=== PATIENT | male | born 1965 | race African-American/Black ===

== ENCOUNTER 2017-10-15 18:44 | Emergency (ER) | payer SELFPAY ==
--- NOTE | 2017-10-15 18:57 | ER Document Report ---
ED General - General Stated Complaint: FOOT PAIN Time Seen by Provider: 10/15/17 18:51 Notes: 52-year-old male presents with itchy rash with oozing from his right dorsal foot , with pain onset 3 days ago. History of the same on the left foot. He has been seen before for this. He does not have diabetes. He states that his foot and ligament a little swollen but they get better when he elevates them. Denies fever chills. - Related Data Allergies/Adverse Reactions: Penicillins Allergy (Verified 03/01/13 03:58) Past Medical History - Social History Smoking Status: Never Smoker Family History: Reviewed & Not Pertinent - Past Medical History Cardiac Medical History: Reports: Hx Hypertension Endocrine Medical History: Reports: Hx Diabetes Mellitus Type 2 - borderline Skin Medical History: Reports Hx MRSA - Immunizations Immunizations up to date: Yes Hx Diphtheria, Pertussis, Tetanus Vaccination: Yes Hx Pneumococcal Vaccination: 01/28/13 Review of Systems - Review of Systems Notes: REVIEW OF SYSTEMS GEN: Denies fever, chills, weight loss ENT: Denies sore throat, nasal discharge, ear pain EYES: Denies blurry vision, eye pain, discharge CV: Denies chest pain, palpitations, edema RESP: Denies cough, shortness of breath, wheezing GI: Denies abdominal pain, nausea, vomiting, diarrhea MSK: Denies joint pain/swelling, edema, SKIN: Rash as above LYMPH: Denies swollen glands/lymph nodes NEURO: Denies headache, focal weakness or numbness, dizziness PSYCH: Denies depression, suicidal or homicidal ideation PHYSICAL EXAMINATION General: No acute distress, well-nourished Head: Atraumatic, normocephalic ENT: Mouth normal, oropharynx moist, no exudates or tonsillar enlargement Eyes: Conjunctiva normal, pupils equal, lids normal Neck: No JVD, supple, no guarding CVS: Normal rate, regular rhythm, no murmurs Resp: No resp distress, equal and normal breath sounds bilaterally GI: Nondistended, soft, no tenderness to palpation, no rebound or guarding Ext: No deformities, right greater than left foot edema. The top dorsal area of the right foot is a confluent area of exudative dermatitis with some desquamation. No bullae. Minimal tenderness. Hyperpigmentation scarring on the left foot. Good pulses bilaterally. Back: No CVA or midline TTP Skin: No rash, warm Lymphatic: No lymphadeopathy noted Neuro: Awake, alert. Face symmetric. GCS 15. Physical Exam - Vital signs Vitals: Resp Pulse Ox 13 98 10/15/17 18:54 10/15/17 18:54 Course - Re-evaluation Re-evalutation: 10/15/17 18:56 Severe exudative dermatitis of the foot. Vital signs stable. Possible overlying cellulitis. Doubt sepsis or osteopenia Nursing initiated sepsis care site which will be done. We will also x-ray. 10/15/17 20:10 Labs normal except mild leukocytosis. Lactic normal. X-ray negative. Patient continues to be well-appearing. I think this is truly a dermatitis not cellulitis but I will cover him for cellulitis given his generally poor hygiene and open skin. We will also do topical steroids. Discharge home in stable condition with instructions to elevate and careful return precautions. I have discussed with the patient there likely diagnosis, aftercare plan, follow -up plans and my usual and customary return precautions. They verbalized understanding of this. - Vital Signs Vital signs: Temp Pulse Resp BP Pulse Ox 98.1 F 14 141/91 H 100 10/15/17 18:58 10/15/17 19:31 10/15/17 19:31 10/15/17 19:31 - Laboratory Result Diagrams: 10/15/17 18:53 10/15/17 18:53 Laboratory results interpreted by me: 10/15/17 18:53 WBC 13.2 H Absolute Neutrophils 8.3 H Absolute Monocytes 1.5 H Discharge - Discharge Clinical Impression: Dermatitis Cellulitis Qualifiers: Site of cellulitis: extremity Site of cellulitis of extremity: lower extremity Laterality: right Qualified Code(s): L03.115 - Cellulitis of right lower limb Condition: Good Disposition: HOME, SELF-CARE Instructions: Cellulitis ([facility]) Prescriptions: Clindamycin HCl 150 mg PO TID #20 capsule
[2017-10-15 19:09] LABS: ABSOLUTE BASOPHILS # (AUTO) 0.1 10^3/uL (0.0-0.2); ABSOLUTE EOSINOPHILS # (AUTO) 0.3 10^3/uL (0.0-0.6); ABSOLUTE LYMPHOCYTES (AUTO) 3.1 10^3/uL (0.5-4.7); ABSOLUTE MONOCYTES (AUTO) 1.5 10^3/uL (0.1-1.4); ABSOLUTE NEUT (AUTO) 8.3 10^3/uL (1.7-8.2); BASOPHILS % (AUTO) 0.4 % (0-2); EOSINOPHILS % (AUTO) 2.6 % (0-6); HEMATOCRIT 41.1 % (37.9-51.0); HEMOGLOBIN 13.6 g/dL (13.5-17.0); LYMPHOCYTES % (AUTO) 23.1 % (13-45); MEAN CORPUSCULAR HEMOGLOBIN 30.4 pg (27.0-33.4); MEAN CORPUSCULAR HGB CONC 33.1 g/dL (32.0-36.0); MEAN CORPUSCULAR VOLUME 92 fl (80-97); MONOCYTES % (AUTO) 11.3 % (3-13); PLATELET COUNT 245 10^3/uL (150-450); RED BLOOD COUNT 4.47 10^6/uL (4.35-5.55); RED CELL DISTRIBUTION WIDTH 12.7 % (11.5-14.0); SEGMENTED NEUTROPHILS % (AUTO) 62.6 % (42-78); TOTAL CELLS COUNTED % (AUTO) 100 %; WHITE BLOOD COUNT 13.2 10^3/uL (4.0-10.5)
[2017-10-15 19:10] LABS: VENOUS BLOOD BASE EXCESS 2.9 mmol/L; VENOUS BLOOD HCO3 29.1 mmol/L (20-32); VENOUS BLOOD PCO2 50.5 mmHg (35-63); VENOUS BLOOD PH 7.38 (7.30-7.42)
--- NOTE | 2017-10-15 19:14 | RADIOLOGY REPORT (SQ) ---
EXAM DESCRIPTION: FOOT RIGHT COMPLETE COMPLETED DATE/TIME: 10/15/2017 7:06 pm REASON FOR STUDY: OSTEO COMPARISON: None. NUMBER OF VIEWS: Three views. TECHNIQUE: AP, lateral and oblique without weight bearing radiographic images acquired of the right foot. LIMITATIONS: None. FINDINGS: MINERALIZATION: Normal. BONES: No acute fracture or dislocation. No worrisome bone lesions. No significant osteophytes. No e rosions. JOINTS: No erosions. No arsalan-articular osteopenia. No chondrocalcinosis. SOFT TISSUES: No swelling. No calcifications. OTHER: No other significant finding. IMPRESSION: NEGATIVE STUDY OF THE RIGHT FOOT. NO EXPLANATION FOR PAIN. No findings of osteomyelitis TECHNICAL DOCUMENTATION: JOB ID: [id number] [employer]- All Rights Reserved
[2017-10-15 19:15] LABS: INTERNATIONAL RATION (INR) 0.88; PROTHROMBIN TIME 12.6 SEC (11.4-15.4)
[2017-10-15 19:32] LABS: ALANINE AMINOTRANSFERASE 23 U/L (21-72); ALBUMIN 4.5 g/dL (3.5-5.0); ALKALINE PHOSPHATASE 60 U/L (38-126); ANION GAP 9 (5-19); ASPARTATE AMINO TRANSFERASE 22 U/L (17-59); BILIRUBIN,DIRECT 0.1 mg/dL (0.0-0.4); BILIRUBIN,TOTAL 0.7 mg/dL (0.2-1.3); BLOOD UREA NITROGEN 17 mg/dL (7-20); CALCIUM 10.1 mg/dL (8.4-10.2); CARBON DIOXIDE 29 mmol/L (22-30); CHLORIDE 106 mmol/L (98-107); GLUCOSE 99 mg/dL (75-110); POTASSIUM 4.4 mmol/L (3.6-5.0); SODIUM 144.3 mmol/L (137-145); TOTAL PROTEIN 7.4 g/dL (6.3-8.2)
[2017-10-15 19:46] LABS: ERYTHROCYTE SEDIMENTATION RATE 20 mm/hr (0-20)
[2017-10-15] MEDS ORDERED: CLINDAMYCIN HCL 150 MG CAPSULE PO ONE (19:48)
[2017-10-15 20:39] VITALS: BP 142/92
== END 2017-10-15 20:45 | disposition home or self-care (01) ==
LOC: ER 18:44
DX: L30.9 Dermatitis, unspecified (principal); L03.115 Cellulitis of right lower limb; M79.671 Pain in right foot; I10 Essential (primary) hypertension; Z86.14 Personal history of Methicillin resistant Staphylococcus aureus infection; Z88.0 Allergy status to penicillin
CPT/HCPCS: 36415; 80053; 82803; 83605; 85025; 85610; 85652; 87040; 99283

== ENCOUNTER 2019-03-14 08:02 | Emergency (ER) | payer OTHER ==
[2019-03-14] MEDS ORDERED: OXYCODONE-ACETAMINOPHEN 5-325 MG TABLET PO ONE (09:00)
--- NOTE | 2019-03-14 09:33 | RADIOLOGY REPORT (SQ) ---
EXAM DESCRIPTION: FOOT RIGHT COMPLETE COMPLETED DATE/TIME: 03/14/2019 9:15 am REASON FOR STUDY: injury COMPARISON: None. NUMBER OF VIEWS: Three views. TECHNIQUE: AP, lateral and oblique radiographic images acquired of the right foot. LIMITATIONS: None. FINDINGS: MINERALIZATION: Normal. BONES: No acute fracture or dislocation. No worrisome bone lesions. JOINTS: Joint space narrowing and bony spurring 1st metatarsophalangeal joint. SOFT TISSUES: Diffuse forefoot soft tissue swelling. No foreign body. OTHER: No other significant finding. IMPRESSION: Diffuse forefoot soft tissue swelling. No fracture. TECHNICAL DOCUMENTATION: JOB ID: [id number] [employer]- All Rights Reserved Reading location - IP/workstation name: [email or web address]
--- NOTE | 2019-03-14 09:37 | ER Document Report ---
ED General - General Chief Complaint: Foot Injury Stated Complaint: RIGHT FOOT PAIN Time Seen by Provider: 03/14/19 08:40 TRAVEL OUTSIDE OF THE [place] IN LAST 30 DAYS: No - HPI Notes: Patient is a 53-year-old male who presents to the emergency department for evaluation. He is a poor historian. He states to me that sometime this week he dropped something on his foot while moving furniture. He was still able to ride his bicycle here. He is still able to bear weight. He states the whole foot hurts, front, back, sides. He denies any other injuries. He does have a history of chronic cellulitis and skin changes to his feet. He really cannot elaborate further on that for me either. I asked if he has had any fevers, he states that the foot feels hot. He denies any systemic fevers. He states is always draining. He does admit to itching it. He is not currently taking any medications. - Related Data Allergies/Adverse Reactions: Penicillins Allergy (Verified 03/14/19 08:02) Past Medical History - General Information source: Patient - Social History Smoking Status: Current Every Day Smoker Chew tobacco use (# tins/day): No Frequency of alcohol use: Occasional Drug Abuse: None Family History: Reviewed & Not Pertinent, CAD, CVA Patient has suicidal ideation: No Patient has homicidal ideation: No - Past Medical History Cardiac Medical History: Reports: Hx Hypertension Endocrine Medical History: Reports: Hx Diabetes Mellitus Type 2 - borderline Renal/ Medical History: Denies: Hx Peritoneal Dialysis Skin Medical History: Reports Hx MRSA - Immunizations Immunizations up to date: Yes Hx Diphtheria, Pertussis, Tetanus Vaccination: Yes Hx Pneumococcal Vaccination: 01/28/13 Review of Systems - Review of Systems Constitutional: No symptoms reported EENT: No symptoms reported Cardiovascular: No symptoms reported Respiratory: No symptoms reported Gastrointestinal: No symptoms reported Genitourinary: No symptoms reported Musculoskeletal: See HPI Skin: See HPI Neurological/Psychological: No symptoms reported Physical Exam - Vital signs Vitals: Temp Pulse Resp BP Pulse Ox 98.5 F 78 18 167/105 H 98 03/14/19 08:06 03/14/19 08:06 03/14/19 08:06 03/14/19 08:06 03/14/19 08:06 - Notes Notes: Vital signs reviewed, please refer to chart. Head is normocephalic, atraumatic. Pupils equal round, reactive to light. Neck is supple without meningismus. Heart is regular rate and rhythm. Lungs are clear to auscultation bilaterally. Abdomen is soft, nontender, normoactive bowel sounds throughout. Extremities without cyanosis, clubbing. Posterior calves are nontender. Peripheral pulses are equal. Examination of the right foot yields excoriation and chronic appearing skin changes over the dorsum of the foot. It is malodorous with serosanguineous appearing drainage at different locations. It almost seems ichthyotic. Patient is tender throughout the entire foot, as well as over the fifth metatarsal head. He has no malleolus tenderness. Sensation is intact, dorsalis pedis pulse easily palpable. Course - Re-evaluation Re-evalutation: 03/14/19 10:42 Patient presents emergency department for evaluation. He has had an injury to this right foot, as well as some changes associated with possible cellulitis. I did do this patient's visit history. He has been hospitalized in the past with chronic inflammation and infection on his feet. He was reminded about hygiene. This area was cleansed and dressed. X-ray showed soft tissue swelling without any significant fracture noted. At this point I will go ahead and treat the patient with antibiotics. We did discuss his elevated blood pressure. He has a history of hypertension. He states he cannot form the medications, nor can he afford to see a physician to get the prescriptions. I will write him for a month of lisinopril, which she has taken in the past. I explained to him that he should fill his antibiotic prescription first. [facility]. He voiced understanding to this. He is to return to the ED with worsening or new concerning symptoms of any sort. - Vital Signs Vital signs: Temp Pulse Resp BP Pulse Ox 97.9 F 58 L 17 147/94 H 99 03/14/19 10:14 03/14/19 10:14 03/14/19 10:14 03/14/19 10:14 03/14/19 10:14 Discharge - Discharge Clinical Impression: Cellulitis of right foot Contusion of right foot Qualifiers: Encounter type: initial encounter Qualified Code(s): S90.31XA - Contusion of right foot, initial encounter Condition: Stable Disposition: HOME, SELF-CARE Instructions: Cellulitis ([facility]), Contusion ([facility]) Additional Instructions: Call of the Bactrim as prescribed until it is gone. Follow-up with the [facility]. When you are able to afford it, fill the lisinopril and take it as directed as well. Elevate the foot, keep skin clean and dry. Return to the emergency department with worsening or new concerning symptoms of any sort. Forms: Elevated Blood Pressure
[2019-03-14 10:18] VITALS: BP 147/94
[2019-03-14] MEDS ORDERED: SULFAMETHOXAZOLE/TRIMETHOPRIM 800-160 MG TABLET PO ONE (10:46)
== END 2019-03-14 10:58 | disposition home or self-care (01) ==
LOC: ER 08:02
DX: S90.31XA Contusion of right foot, initial encounter (principal); W22.8XXA Striking against or struck by other objects, initial encounter; E11.9 Type 2 diabetes mellitus without complications; F17.200 Nicotine dependence, unspecified, uncomplicated; Z86.14 Personal history of Methicillin resistant Staphylococcus aureus infection; Z88.0 Allergy status to penicillin
CPT/HCPCS: 99283

== ENCOUNTER 2019-03-20 02:18 | Inpatient (IN) | payer SELFPAY ==
[2019-03-20] MEDS ORDERED: ACETAMINOPHEN 325 MG TABLET PO ONE (03:07)
[2019-03-20] MEDS ORDERED: CLINDAMYCIN 900 MG/D5W RTU 900 MG/50 ML RTUPB IV ONE (05:16)
[2019-03-20] MEDS ORDERED: KETOROLAC TROMETHAMINE INJ/PF 30 MG/1 ML SDV IV ONE (05:16)
--- NOTE | 2019-03-20 05:16 | ER Document Report ---
ED Extremity Problem, Lower - General Chief Complaint: Feet Swelling Stated Complaint: FOOT PAIN Time Seen by Provider: 03/20/19 04:48 Notes: This is a 53-year-old male to the emergency department with severe pain in his bilateral feet. Patient states that he has an skin infection in both feet. Getting worse. Having chills and fevers at home. Is unable to pay for any medications. Was prescribed some medication but did not get it filled. Now his feet are extremely swollen, oozing and getting worse. TRAVEL OUTSIDE OF THE [place] IN LAST 30 DAYS: No - HPI Patient complains to provider of: Pain, Swelling Location: Foot Occurred: Last week Where: Home Quality of pain: Burning, Throbbing Severity: Severe Pain Level: 4 - Related Data Allergies/Adverse Reactions: Penicillins Allergy (Verified 03/14/19 08:02) Past Medical History - General Information source: Patient - Social History Smoking Status: Current Every Day Smoker Frequency of alcohol use: Occasional Drug Abuse: None Lives with: Family Family History: Reviewed & Not Pertinent, CAD, CVA - Past Medical History Cardiac Medical History: Reports: Hx Hypertension Endocrine Medical History: Reports: Hx Diabetes Mellitus Type 2 - borderline Renal/ Medical History: Denies: Hx Peritoneal Dialysis Skin Medical History: Reports Hx MRSA - Immunizations Immunizations up to date: Yes Hx Diphtheria, Pertussis, Tetanus Vaccination: Yes Hx Pneumococcal Vaccination: 01/28/13 Review of Systems - Review of Systems Notes: Constitutional: denies: Chills, Diaphoresis, +Fever, -Malaise,- Weakness EENT: denies: Eye discharge, Blurred vision, Tearing, Double vision, Nose congestion, Nose discharge, Throat swelling, Mouth pain Cardiovascular: denies: Palpitations, Heart racing, Orthopnea, Dyspnea, Chest pain Respiratory: denies: Cough, Hurts to breathe, Wheezing, Shortness of breath Gastrointestinal: denies: Abdominal pain, Diarrhea, Nausea, Vomiting, Black stools, bright red blood in stool Genitourinary: denies: Burning, Dysuria, Discharge, Frequency, Flank pain, Hematuria Musculoskeletal: denies: Joint pain, Joint swelling, Muscle pain, Muscle stiffness, back pain Hematologic/Lymphatic: denies: Anemia, Easy bleeding, Easy bruising, Blood clots Neurological/Psychological: denies: Confusion, Dementia, Depression, Loss of consciousness Skin: Complaining of swelling in breakdown of the skin with oozing and drainage of bilateral feet. Physical Exam - Vital signs Vitals: Temp Pulse Resp BP Pulse Ox 98.4 F 73 16 157/94 H 98 03/20/19 02:26 03/20/19 02:26 03/20/19 02:26 03/20/19 02:26 03/20/19 02:26 Interpretation: Normal - General General appearance: Appears well, Alert - HEENT Head: Normocephalic, Atraumatic Eyes: Normal Pupils: PERRL - Respiratory Respiratory status: No respiratory distress Chest status: Nontender Breath sounds: Normal Chest palpation: Normal - Cardiovascular Rhythm: Regular Heart sounds: Normal auscultation Murmur: No - Abdominal Inspection: Normal Distension: No distension Bowel sounds: Normal Tenderness: Nontender Organomegaly: No organomegaly - Back Back: Normal, Nontender - Extremities General upper extremity: Normal inspection, Nontender, Normal color, Normal ROM, Normal temperature General lower extremity: Tender - Extreme tenderness with skin breakdown bilateral feet area serosanguineous drainage bilateral feet., Edema, Normal color, Normal ROM. No: Normal temperature - Both feet very warm to the touch., Char's sign - Neurological Neuro grossly intact: Yes Cognition: Normal Orientation: AAOx4 Bimble Coma Scale Eye Opening: Spontaneous Supriya Coma Scale Verbal: Oriented Supriya Coma Scale Motor: Obeys Commands Supriya Coma Scale Total: 15 Speech: Normal Motor strength normal: LUE, RUE, LLE, RLE Sensory: Normal - Psychological Associated symptoms: Normal affect, Normal mood - Skin Skin Temperature: Warm Skin Moisture: Dry Skin Color: Other - There is a large amount of edema and swelling with oozing and breakdown of the skin on the top of the feet bilaterally. Course - Re-evaluation Re-evalutation: 03/20/19 05:30 Patient with gross cellulitis to the bilateral feet. Large amount of drainage. Appears to be quite infected. Patient has limited funds. Unlikely patient is going to get better without direct intervention. Patient more than likely will need to be admitted. Allergy To penicillin so starting on clindamycin. 03/20/19 06:17 Patient's labs are still pending 0 600. Patient signed out to Dr. Solorio - Vital Signs Vital signs: Temp Pulse Resp BP Pulse Ox 98.4 F 73 16 157/94 H 98 03/20/19 02:26 03/20/19 02:26 03/20/19 02:26 03/20/19 02:26 03/20/19 02:26 - Laboratory Result Diagrams: 03/20/19 05:50 03/20/19 05:50 Laboratory results interpreted by me: 03/20/19 05:50 Monocytes % 13.3 H Discharge - Discharge Clinical Impression: Cellulitis of both feet Condition: Good Disposition: HOME, SELF-CARE
[2019-03-20 06:01] LABS: ABSOLUTE EOSINOPHILS # (AUTO) 0.3 10^3/uL (0.0-0.6); ABSOLUTE LYMPHOCYTES (AUTO) 2.4 10^3/uL (0.5-4.7); ABSOLUTE MONOCYTES (AUTO) 1.2 10^3/uL (0.1-1.4); ABSOLUTE NEUT (AUTO) 5.3 10^3/uL (1.7-8.2); BASOPHILS % (AUTO) 0.5 % (0-2); EOSINOPHILS % (AUTO) 2.8 % (0-6); HEMATOCRIT 40.8 % (37.9-51.0); HEMOGLOBIN 13.5 g/dL (13.5-17.0); LYMPHOCYTES % (AUTO) 26.3 % (13-45); MEAN CORPUSCULAR HEMOGLOBIN 30.6 pg (27.0-33.4); MEAN CORPUSCULAR HGB CONC 33.1 g/dL (32.0-36.0); MEAN CORPUSCULAR VOLUME 93 fl (80-97); MONOCYTES % (AUTO) 13.3 % (3-13); PLATELET COUNT 251 10^3/uL (150-450); RED BLOOD COUNT 4.41 10^6/uL (4.35-5.55); SEGMENTED NEUTROPHILS % (AUTO) 57.1 % (42-78); TOTAL CELLS COUNTED % (AUTO) 100 %; WHITE BLOOD COUNT 9.3 10^3/uL (4.0-10.5)
[2019-03-20 06:34] LABS: ALANINE AMINOTRANSFERASE 32 U/L (21-72); ALBUMIN 4.2 g/dL (3.5-5.0); ALKALINE PHOSPHATASE 81 U/L (38-126); ANION GAP 7 (5-19); ASPARTATE AMINO TRANSFERASE 45 U/L (17-59); BILIRUBIN,DIRECT 0.2 mg/dL (0.0-0.4); BILIRUBIN,TOTAL 0.9 mg/dL (0.2-1.3); BLOOD UREA NITROGEN 12 mg/dL (7-20); CARBON DIOXIDE 29 mmol/L (22-30); CHLORIDE 102 mmol/L (98-107); GLUCOSE 94 mg/dL (75-110); POTASSIUM 4.3 mmol/L (3.6-5.0); SODIUM 137.7 mmol/L (137-145); TOTAL PROTEIN 7.8 g/dL (6.3-8.2)
[2019-03-20 06:42] LABS: ERYTHROCYTE SEDIMENTATION RATE 28 mm/hr (0-20)
--- NOTE | 2019-03-20 08:38 | RADIOLOGY REPORT (SQ) ---
EXAM DESCRIPTION: FOOT BILATERAL 2 VIEWS COMPLETED DATE/TIME: 03/20/2019 8:03 am REASON FOR STUDY: infected looking for gas COMPARISON: None. NUMBER OF VIEWS: Four views. TECHNIQUE: AP and lateral radiographic images acquired of the right and left foot. LIMITATIONS: None. FINDINGS: MINERALIZATION: Normal. BONES: No acute fracture or dislocation. No worrisome bone lesions. JOINTS: No effusions. SOFT TISSUES: Diffuse swelling. No foreign body. OTHER: No other significant finding. IMPRESSION: No evidence of osteomyelitis. TECHNICAL DOCUMENTATION: JOB ID: [id number] [employer]- All Rights Reserved Reading location - IP/workstation name: [email or web address]
[2019-03-20] MEDS ORDERED: MUPIROCIN 2% OINTMENT 22 GM TP ONE (09:20)
--- NOTE | 2019-03-20 09:29 | Progress Note Acknowledgement ---
Progress Note Acknowledgement Progess Note Acknowledgement: I, the undersigned member of the medical staff with appropriate privileges and with supervisory authority over Hayes Puente, a [facility] practice allied health professional, acknowledge that I have reviewed the progress notes entered on this patient, and in my professional judgment believe that the assessment made and/or any care evidenced was appropriate
--- NOTE | 2019-03-20 09:29 | PDOC H&P ---
History of Present Illness Admission Date/PCP: 03/20/2019 Patient complains of: Bilateral cellulitis of feet History of Present Illness: FRANCISCO AGARWAL is a 53 year old male who is homeless presents with a cellulitis on the dorsal aspect of bilateral feet. Patient states this is worsened over la st several days he was given a prescription for antibiotics but cannot afford them. He had no treatment prior to arrival no true aggravating factors. Past Medical History Cardiac Medical History: Reports: Hypertension Endocrine Medical History: Reports: Diabetes Mellitus Type 2 - borderline Past Surgical History Past Surgical History: Reports: None Social History Lives with: Family, Other - Homeless Smoking Status: Current Every Day Smoker Cigarettes Packs Per Day: 1 Frequency of Alcohol Use: Occasional Hx Recreational Drug Use: No Hx Prescription Drug Abuse: No - Advance Directive Resuscitation Status: Full Code Family History Family History: Reviewed & Not Pertinent, CAD, CVA Parental Family History Reviewed: Yes Children Family History Reviewed: Yes Sibling(s) Family History Reviewed.: Yes Medication/Allergy Allergies/Adverse Reactions: Penicillins Allergy (Verified 03/14/19 08:02) Review of Systems Constitutional: ABSENT: chills, fever(s), headache(s), weight gain, weight loss Eyes: ABSENT: visual disturbances Ears: ABSENT: hearing changes Cardiovascular: ABSENT: chest pain, dyspnea on exertion, edema, orthropnea, palpitations Respiratory: ABSENT: cough, hemoptysis Gastrointestinal: ABSENT: abdominal pain, constipation, diarrhea, hematemesis, hematochezia, nausea, vomiting Genitourinary: ABSENT: dysuria, hematuria Musculoskeletal: ABSENT: joint swelling Integumentary: PRESENT: other - Cellulitis of bilateral dorsal aspect of both feet that looks suspicious for impetigo Neurological: ABSENT: abnormal gait, abnormal speech, confusion, dizziness, focal weakness, syncope Psychiatric: ABSENT: anxiety, depression, homidical ideation, suicidal ideation Endocrine: ABSENT: cold intolerance, heat intolerance, polydipsia, polyuria Hematologic/Lymphatic: ABSENT: easy bleeding, easy bruising Physical Exam Vital Signs: Temp Pulse Resp BP Pulse Ox 98.5 F 58 L 18 137/78 H 100 03/20/19 08:02 03/20/19 08:02 03/20/19 08:02 03/20/19 08:02 03/20/19 08:02 Intake & Output 03/19/19 03/20/19 03/21/19 06:59 06:59 06:59 Intake Total 50 Balance 50 Weight 78 kg General appearance: PRESENT: no acute distress, well-developed, well-nourished Head exam: PRESENT: atraumatic, normocephalic Eye exam: PRESENT: conjunctiva pink, EOMI, PERRLA. ABSENT: scleral icterus Ear exam: PRESENT: normal external ear exam Mouth exam: PRESENT: moist, tongue midline Neck exam: ABSENT: carotid bruit, JVD, lymphadenopathy, thyromegaly Respiratory exam: PRESENT: clear to auscultation kyra. ABSENT: rales, rhonchi, wheezes Cardiovascular exam: PRESENT: RRR. ABSENT: diastolic murmur, rubs, systolic murmur Pulses: PRESENT: normal dorsalis pedis pul Vascular exam: PRESENT: normal capillary refill GI/Abdominal exam: PRESENT: normal bowel sounds, soft. ABSENT: distended, guarding, mass, organolmegaly, rebound, tenderness Rectal exam: PRESENT: deferred Extremities exam: PRESENT: full ROM. ABSENT: calf tenderness, clubbing, pedal edema Neurological exam: PRESENT: alert, awake, oriented to person, oriented to place, oriented to time, oriented to situation, CN II-XII grossly intact. ABSENT: motor sensory deficit Psychiatric exam: PRESENT: appropriate affect, normal mood. ABSENT: homicidal ideation, suicidal ideation Skin exam: PRESENT: other - Cellulitis suggestive of impetigo covering the dorsal aspect of both feet Results Laboratory Results: 03/20/19 05:50 03/20/19 05:50 03/20/19 03/20/19 05:50 05:50 WBC 9.3 RBC 4.41 Hgb 13.5 Hct 40.8 MCV 93 MCH 30.6 MCHC 33.1 RDW 13.0 Plt Count 251 Seg Neutrophils % 57.1 Lymphocytes % 26.3 Monocytes % 13.3 H Eosinophils % 2.8 Basophils % 0.5 Absolute Neutrophils 5.3 Absolute Lymphocytes 2.4 Absolute Monocytes 1.2 Absolute Eosinophils 0.3 Absolute Basophils 0.0 Sodium 137.7 Potassium 4.3 Chloride 102 Carbon Dioxide 29 Anion Gap 7 BUN 12 Creatinine 0.82 Est GFR ( Amer) > 60 Est GFR (Non-Af Amer) > 60 Glucose 94 Calcium 9.0 Total Bilirubin 0.9 AST 45 ALT 32 Alkaline Phosphatase 81 Total Protein 7.8 Albumin 4.2 Impressions: Foot X-Ray 03/20/19 07:46 IMPRESSION: No evidence of osteomyelitis. Assessment and Plan - Diagnosis (1) Cellulitis of both feet Is this a current diagnosis for this admission?: Yes Plan: Admit to medical surgical. I have placed patient on clindamycin 300 g IV every 8 hours. Will await culture for offending organism. Make change plan of care as appropriate (2) Homeless Is this a current diagnosis for this admission?: Yes Plan: 03/20/2019 patient seen by social worker assistant for possible programs he could be recommended for assistance. - Time Time Spent with patient: 35 or more minutes Anticipated discharge: Other
[2019-03-20] MEDS: ENOXAPARIN SODIUM INJ 40 MG/0.4 ML DISP.SYRIN SUBCUT SCH (10:05)
[2019-03-20] MEDS: OXYCODONE-ACETAMINOPHEN 5-325 MG TABLET PO PRN ×2 (10:08→17:29)
[2019-03-20] MEDS ORDERED: WATER IV SCH (14:00)
[2019-03-20] MEDS ORDERED: CLINDAMYCIN PHOSPHATE IV SCH (14:00)
[2019-03-20] MEDS ORDERED: DEXTROSE 5% IV SCH (14:00)
[2019-03-20] MEDS: CLINDAMYCIN 300 MG/D5W RTU 300 MG/50 ML RTUPB IV SCH ×2 (15:16→22:54)
[2019-03-21] MEDS: ZOLPIDEM TARTRATE 5 MG TABLET PO PRN ×2 (00:14→23:35)
[2019-03-21] MEDS: OXYCODONE-ACETAMINOPHEN 5-325 MG TABLET PO PRN ×3 (00:14→21:38)
[2019-03-21 05:14] LABS: HEMATOCRIT 38.1 % (37.9-51.0); HEMOGLOBIN 12.5 g/dL (13.5-17.0); MEAN CORPUSCULAR HEMOGLOBIN 30.6 pg (27.0-33.4); MEAN CORPUSCULAR HGB CONC 32.9 g/dL (32.0-36.0); MEAN CORPUSCULAR VOLUME 93 fl (80-97); PLATELET COUNT 193 10^3/uL (150-450); RED BLOOD COUNT 4.09 10^6/uL (4.35-5.55); RED CELL DISTRIBUTION WIDTH 12.8 % (11.5-14.0); WHITE BLOOD COUNT 6.7 10^3/uL (4.0-10.5)
[2019-03-21 05:43] LABS: ANION GAP 5 (5-19); BLOOD UREA NITROGEN 11 mg/dL (7-20); CALCIUM 8.4 mg/dL (8.4-10.2); CARBON DIOXIDE 31 mmol/L (22-30); CHLORIDE 101 mmol/L (98-107); GLUCOSE 84 mg/dL (75-110); POTASSIUM 4.3 mmol/L (3.6-5.0); SODIUM 136.6 mmol/L (137-145)
[2019-03-21] MEDS: CLINDAMYCIN 300 MG/D5W RTU 300 MG/50 ML RTUPB IV SCH ×3 (06:17→21:32)
[2019-03-21] MEDS: ENOXAPARIN SODIUM INJ 40 MG/0.4 ML DISP.SYRIN SUBCUT SCH (09:39)
--- NOTE | 2019-03-21 10:34 | Progress Note Acknowledgement ---
Progress Note Acknowledgement Progess Note Acknowledgement: I, the undersigned member of the medical staff with appropriate privileges and with supervisory authority over Hayes Puente, a [facility] practice allied health professional, acknowledge that I have reviewed the progress notes entered on this patient, and in my professional judgment believe that the assessment made and/or any care evidenced was appropriate
--- NOTE | 2019-03-21 10:43 | PDOC PROGRESS REPORT ---
Subjective Progress Note for:: 03/21/19 Subjective:: Patient lying in bed with no signs of acute distress at this time. Bilateral feet continue to worsen with this impetigo like infection. Reason For Visit: BILATERAL CELLULITIS FEET Physical Exam Vital Signs: Temp Pulse Resp BP Pulse Ox 98.2 F 68 18 120/68 99 03/21/19 08:00 03/21/19 08:00 03/21/19 08:00 03/21/19 08:00 03/21/19 08:00 Intake & Output 03/20/19 03/21/19 03/22/19 06:59 06:59 06:59 Intake Total 1490 50 Output Total 0 Balance 1490 50 Weight 78 kg 78 kg General appearance: PRESENT: no acute distress, well-developed, well-nourished Neck exam: ABSENT: carotid bruit, JVD, lymphadenopathy, thyromegaly Respiratory exam: PRESENT: clear to auscultation kyra. ABSENT: rales, rhonchi, wheezes Cardiovascular exam: PRESENT: RRR. ABSENT: diastolic murmur, rubs, systolic murmur Pulses: PRESENT: normal dorsalis pedis pul Vascular exam: PRESENT: normal capillary refill GI/Abdominal exam: PRESENT: normal bowel sounds, soft. ABSENT: distended, guarding, mass, organolmegaly, rebound, tenderness Extremities exam: PRESENT: other - Impetigo like infection covering the dorsal aspect of bilateral feet Neurological exam: PRESENT: alert, awake, oriented to person, oriented to place, oriented to time, oriented to situation, CN II-XII grossly intact. ABSENT: motor sensory deficit Psychiatric exam: PRESENT: appropriate affect, normal mood. ABSENT: homicidal ideation, suicidal ideation Skin exam: PRESENT: dry, intact, warm. ABSENT: cyanosis, rash Results Laboratory Results: 03/21/19 04:31 03/21/19 04:31 03/21/19 03/21/19 04:31 04:31 WBC 6.7 RBC 4.09 L Hgb 12.5 L Hct 38.1 MCV 93 MCH 30.6 MCHC 32.9 RDW 12.8 Plt Count 193 Sodium 136.6 L Potassium 4.3 Chloride 101 Carbon Dioxide 31 H Anion Gap 5 BUN 11 Creatinine 0.79 Est GFR ( Amer) > 60 Est GFR (Non-Af Amer) > 60 Glucose 84 Calcium 8.4 Impressions: Foot X-Ray 03/20/19 07:46 IMPRESSION: No evidence of osteomyelitis. Assessment and Plan - Diagnosis (1) Cellulitis of both feet Is this a current diagnosis for this admission?: Yes Plan: Admit to medical surgical. I have placed patient on clindamycin 300 g IV every 8 hours. Will await culture for offending organism. Make change plan of care as appropriate 03/21/2019-seem to be worsening today. I will add Dakin's solution. Will soak patient's feet bilaterally and Dakin's solution for 10 minutes then rinse well. After which we will put on Bactroban ointment. We will continue IV antibiotics this time until cultures return (2) Homeless Is this a current diagnosis for this admission?: Yes Plan: 03/20/2019 patient seen by protective services social worker for possible programs he could be recommended for assistance. 03/21/2019-patient being seen by social psychologist at this time. - Time Time Spent with patient: 15-24 minutes - Inpatient Certification Based on my medical assessment, after consideration of the patient's comorbidities, presenting symptoms, or acuity I expect that the services needed warrant INPATIENT care.: Yes I certify that my determination is in accordance with my understanding of Medicare's requirements for reasonable and necessary INPATIENT services [42 CFR 412.3e].: Yes Medical Necessity: Other - Patient continues on IV antibiotics
[2019-03-21] MEDS: MUPIROCIN 2% OINTMENT 22 GM TP SCH ×2 (11:31→17:16)
[2019-03-21] MEDS: SODIUM HYPOCHLORITE 0.25% SOLN 473 ML BOTTLE TP SCH ×2 (11:31→17:16)
[2019-03-22] MEDS: OXYCODONE-ACETAMINOPHEN 5-325 MG TABLET PO PRN ×3 (05:36→22:39)
[2019-03-22] MEDS: CLINDAMYCIN 300 MG/D5W RTU 300 MG/50 ML RTUPB IV SCH ×3 (05:36→22:39)
[2019-03-22] MEDS: ENOXAPARIN SODIUM INJ 40 MG/0.4 ML DISP.SYRIN SUBCUT SCH (09:34)
[2019-03-22] MEDS: SODIUM HYPOCHLORITE 0.25% SOLN 473 ML BOTTLE TP SCH ×2 (09:35→17:23)
[2019-03-22] MEDS: MUPIROCIN 2% OINTMENT 22 GM TP SCH ×2 (09:35→17:22)
--- NOTE | 2019-03-22 11:46 | PDOC PROGRESS REPORT ---
Subjective Progress Note for:: 03/22/19 Subjective:: Patient lying in bed with no signs of acute distress at this time. Bilateral feet continue to worsen with this impetigo like infection. Patient states pain in bilateral feet while ambulating Reason For Visit: BILATERAL CELLULITIS FEET Physical Exam Vital Signs: Temp Pulse Resp BP Pulse Ox 98.6 F 57 L 17 119/59 L 99 03/22/19 08:00 03/22/19 08:00 03/22/19 08:00 03/22/19 08:00 03/22/19 08:00 Intake & Output 03/21/19 03/22/19 03/23/19 06:59 06:59 06:59 Intake Total 1490 1940 Output Total 0 3100 Balance 1490 -1160 Weight 78 kg 79.8 kg General appearance: PRESENT: no acute distress, well-developed, well-nourished Head exam: PRESENT: atraumatic, normocephalic Eye exam: PRESENT: conjunctiva pink, EOMI, PERRLA. ABSENT: scleral icterus Ear exam: PRESENT: normal external ear exam Mouth exam: PRESENT: moist, tongue midline Neck exam: ABSENT: carotid bruit, JVD, lymphadenopathy, thyromegaly Respiratory exam: PRESENT: clear to auscultation kyra. ABSENT: rales, rhonchi, wheezes Cardiovascular exam: PRESENT: RRR. ABSENT: diastolic murmur, rubs, systolic murmur Pulses: PRESENT: normal dorsalis pedis pul Vascular exam: PRESENT: normal capillary refill GI/Abdominal exam: PRESENT: normal bowel sounds, soft. ABSENT: distended, guarding, mass, organolmegaly, rebound, tenderness Rectal exam: PRESENT: deferred Extremities exam: PRESENT: full ROM. ABSENT: calf tenderness, clubbing, pedal edema Neurological exam: PRESENT: alert, awake, oriented to person, oriented to place, oriented to time, oriented to situation, CN II-XII grossly intact. ABSENT: motor sensory deficit Psychiatric exam: PRESENT: appropriate affect, normal mood. ABSENT: homicidal ideation, suicidal ideation Skin exam: PRESENT: dry, intact, warm, other - Lateral foot infection is clearing up at this time looks much better than yesterday with addition of Dakin's solution and Bactroban. ABSENT: rash Results Laboratory Results: 03/21/19 04:31 03/21/19 04:31 Impressions: Foot X-Ray 03/20/19 07:46 IMPRESSION: No evidence of osteomyelitis. Assessment and Plan - Diagnosis (1) Cellulitis of both feet Is this a current diagnosis for this admission?: Yes Plan: Admit to medical surgical. I have placed patient on clindamycin 300 g IV every 8 hours. Will await culture for offending organism. Make change plan of care as appropriate 03/21/2019-seem to be worsening today. I will add Dakin's solution. Will soak patient's feet bilaterally and Dakin's solution for 10 minutes then rinse well. After which we will put on Bactroban ointment. We will continue IV antibiotics this time until cultures return 03/22/2019-much improved. Continue with Dakin's solution soaks and Bactroban ointment. (2) Homeless Is this a current diagnosis for this admission?: Yes Plan: 03/20/2019 patient seen by protective services social worker for possible programs he could be recommended for assistance. 03/21/2019-patient being seen by social service director at this time. 03/22/2019-await protective services social worker recommendations. - Time Time Spent with patient: 15-24 minutes - Inpatient Certification Based on my medical assessment, after consideration of the patient's comorbidities, presenting symptoms, or acuity I expect that the services needed warrant INPATIENT care.: Yes I certify that my determination is in accordance with my understanding of Medicare's requirements for reasonable and necessary INPATIENT services [42 CFR 412.3e].: Yes Medical Necessity: Other - Patient continues on IV antibiotics
[2019-03-22] MEDS: ZOLPIDEM TARTRATE 5 MG TABLET PO PRN (23:26)
[2019-03-23] MEDS: CLINDAMYCIN 300 MG/D5W RTU 300 MG/50 ML RTUPB IV SCH ×3 (05:38→21:56)
[2019-03-23] MEDS: OXYCODONE-ACETAMINOPHEN 5-325 MG TABLET PO PRN ×2 (05:38→17:51)
[2019-03-23] MEDS: ENOXAPARIN SODIUM INJ 40 MG/0.4 ML DISP.SYRIN SUBCUT SCH (09:56)
[2019-03-23] MEDS: SODIUM HYPOCHLORITE 0.25% SOLN 473 ML BOTTLE TP SCH ×2 (09:59→17:45)
[2019-03-23] MEDS: MUPIROCIN 2% OINTMENT 22 GM TP SCH ×2 (10:00→17:46)
--- NOTE | 2019-03-23 11:58 | Progress Note Acknowledgement ---
Progress Note Acknowledgement Progess Note Acknowledgement: I, the undersigned member of the medical staff with appropriate privileges and with supervisory authority over [Hayes Puente], a dependent practice allied health professional, acknowledge that I have reviewed the progress notes entered on this patient, and in my professional judgment believe that the assessment made and/or any care evidenced was appropriate
--- NOTE | 2019-03-23 12:01 | PDOC PROGRESS REPORT ---
Subjective Progress Note for:: 03/23/19 Subjective:: Patient lying in bed with no signs of acute distress at this time. Bilateral feet continue to worsen with this impetigo like infection. Patient states pain in bilateral feet while ambulating March 23, 2019-patient still having issues with ambulation secondary to swelling and pain in his feet. Reason For Visit: CELLULITIS OF BILATERAL FEET Physical Exam Vital Signs: Temp Pulse Resp BP Pulse Ox 98.2 F 56 L 15 118/65 100 03/23/19 08:00 03/23/19 08:00 03/23/19 08:00 03/23/19 08:00 03/23/19 08:00 Intake & Output 03/22/19 03/23/19 03/24/19 06:59 06:59 06:59 Intake Total 1940 2260 Output Total 3100 1000 Balance -1160 1260 Weight 79.8 kg 79.8 kg General appearance: PRESENT: no acute distress, well-developed, well-nourished Neck exam: ABSENT: carotid bruit, JVD, lymphadenopathy, thyromegaly Respiratory exam: PRESENT: clear to auscultation kyra. ABSENT: rales, rhonchi, wheezes Cardiovascular exam: PRESENT: RRR. ABSENT: diastolic murmur, rubs, systolic murmur Pulses: PRESENT: normal dorsalis pedis pul Vascular exam: PRESENT: normal capillary refill GI/Abdominal exam: PRESENT: normal bowel sounds, soft. ABSENT: distended, guarding, mass, organolmegaly, rebound, tenderness Extremities exam: PRESENT: other - Bilateral feet and dorsal aspect with what appears to be pentagonal infection lots of swelling and cracking of skin. Neurological exam: PRESENT: alert, awake, oriented to person, oriented to place, oriented to time, oriented to situation, CN II-XII grossly intact. ABSENT: motor sensory deficit Psychiatric exam: PRESENT: appropriate affect, normal mood. ABSENT: homicidal ideation, suicidal ideation Skin exam: PRESENT: dry, intact, warm. ABSENT: cyanosis, rash Results Laboratory Results: 03/21/19 04:31 03/21/19 04:31 Impressions: Foot X-Ray 03/20/19 07:46 IMPRESSION: No evidence of osteomyelitis. Assessment and Plan - Diagnosis (1) Cellulitis of both feet Is this a current diagnosis for this admission?: Yes Plan: Admit to medical surgical. I have placed patient on clindamycin 300 g IV every 8 hours. Will await culture for offending organism. Make change plan of care as appropriate 03/21/2019-seem to be worsening today. I will add Dakin's solution. Will soak patient's feet bilaterally and Dakin's solution for 10 minutes then rinse well. After which we will put on Bactroban ointment. We will continue IV antibiotics this time until cultures return 03/22/2019-much improved. Continue with Dakin's solution soaks and Bactroban ointment. March 23, 2019-patient continues with Dakin's solution soaks and Bactrim and ointment. Swelling continues there is cracking of the dorsal aspect of the foot secondary to this infection. Overall looks better though (2) Homeless Is this a current diagnosis for this admission?: Yes Plan: 03/20/2019 patient seen by social media content specialist for possible programs he could be recommended for assistance. 03/21/2019-patient being seen by certified social workers in health care at this time. 03/22/2019-await social media content specialist recommendations. March 23, 2019-we will discuss with social media content specialist at [facility] Rounds today. - Time Time Spent with patient: Less than 15 minutes Anticipated discharge: Other - Homeless - Inpatient Certification Based on my medical assessment, after consideration of the patient's comorbidities, presenting symptoms, or acuity I expect that the services needed warrant INPATIENT care.: Yes I certify that my determination is in accordance with my understanding of Medicare's requirements for reasonable and necessary INPATIENT services [42 CFR 412.3e].: Yes Medical Necessity: Other - Continues on IV antibiotics waiting cultures.
[2019-03-24] MEDS: CLINDAMYCIN 300 MG/D5W RTU 300 MG/50 ML RTUPB IV SCH ×3 (05:56→21:10)
[2019-03-24 06:09] LABS: ABSOLUTE BASOPHILS # (AUTO) 0.1 10^3/uL (0.0-0.2); ABSOLUTE EOSINOPHILS # (AUTO) 0.2 10^3/uL (0.0-0.6); ABSOLUTE LYMPHOCYTES (AUTO) 2.1 10^3/uL (0.5-4.7); ABSOLUTE MONOCYTES (AUTO) 0.5 10^3/uL (0.1-1.4); ABSOLUTE NEUT (AUTO) 2.2 10^3/uL (1.7-8.2); BASOPHILS % (AUTO) 1.1 % (0-2); EOSINOPHILS % (AUTO) 4.1 % (0-6); HEMATOCRIT 39.2 % (37.9-51.0); HEMOGLOBIN 12.8 g/dL (13.5-17.0); LYMPHOCYTES % (AUTO) 41.7 % (13-45); MEAN CORPUSCULAR HEMOGLOBIN 30.4 pg (27.0-33.4); MEAN CORPUSCULAR HGB CONC 32.8 g/dL (32.0-36.0); MEAN CORPUSCULAR VOLUME 93 fl (80-97); MONOCYTES % (AUTO) 9.9 % (3-13); PLATELET COUNT 236 10^3/uL (150-450); RED BLOOD COUNT 4.22 10^6/uL (4.35-5.55); RED CELL DISTRIBUTION WIDTH 12.6 % (11.5-14.0); SEGMENTED NEUTROPHILS % (AUTO) 43.2 % (42-78); TOTAL CELLS COUNTED % (AUTO) 100 %; WHITE BLOOD COUNT 5.1 10^3/uL (4.0-10.5)
[2019-03-24 06:39] LABS: ANION GAP 7 (5-19); BLOOD UREA NITROGEN 13 mg/dL (7-20); CALCIUM 9.3 mg/dL (8.4-10.2); CARBON DIOXIDE 28 mmol/L (22-30); CHLORIDE 104 mmol/L (98-107); GLUCOSE 89 mg/dL (75-110); POTASSIUM 4.8 mmol/L (3.6-5.0); SODIUM 138.9 mmol/L (137-145)
[2019-03-24] MEDS: ENOXAPARIN SODIUM INJ 40 MG/0.4 ML DISP.SYRIN SUBCUT SCH (09:51)
[2019-03-24] MEDS: SODIUM HYPOCHLORITE 0.25% SOLN 473 ML BOTTLE TP SCH ×2 (09:53→17:27)
[2019-03-24] MEDS: MUPIROCIN 2% OINTMENT 22 GM TP SCH ×2 (09:56→17:28)
--- NOTE | 2019-03-24 14:45 | PDOC PROGRESS REPORT ---
Subjective Progress Note for:: 03/24/19 Subjective:: This is a 53-year-old male who was admitted for bilateral feet cellulitis. He was started on IV clindamycin. No acute event overnight. This morning, patient says that he still has pain when he steps on his feet. Both feet still appears erythematous but he does say that the redness has continued to improve. Reason For Visit: CELLULITIS OF BILATERAL FEET Physical Exam Vital Signs: Temp Pulse Resp BP Pulse Ox 98.1 F 50 L 19 121/73 99 03/24/19 10:26 03/24/19 10:26 03/24/19 10:26 03/24/19 10:26 03/24/19 10:26 Intake & Output 03/23/19 03/24/19 03/25/19 06:59 06:59 06:59 Intake Total 2260 1986 50 Output Total 1000 3650 Balance 1260 -1664 50 Weight 175 lb 14.862 oz 169 lb 12.095 oz General appearance: PRESENT: no acute distress, well-developed, well-nourished Head exam: PRESENT: atraumatic, normocephalic Eye exam: PRESENT: conjunctiva pink, EOMI, PERRLA. ABSENT: scleral icterus Ear exam: PRESENT: normal external ear exam Mouth exam: PRESENT: moist, tongue midline Neck exam: ABSENT: carotid bruit, JVD, lymphadenopathy, thyromegaly Respiratory exam: PRESENT: clear to auscultation kyra. ABSENT: rales, rhonchi, wheezes Cardiovascular exam: PRESENT: RRR. ABSENT: diastolic murmur, rubs, systolic murmur Pulses: PRESENT: normal dorsalis pedis pul GI/Abdominal exam: PRESENT: normal bowel sounds, soft. ABSENT: distended, guarding, mass, organolmegaly, rebound, tenderness Rectal exam: PRESENT: deferred Extremities exam: PRESENT: other - note of slightly swollen, erythematous feet with excoriations on the dorsal aspects of both feet Neurological exam: PRESENT: alert, awake, oriented to person, oriented to place, oriented to time, oriented to situation, CN II-XII grossly intact. ABSENT: mo tor sensory deficit Results Laboratory Results: 03/24/19 05:47 03/24/19 05:47 03/24/19 03/24/19 05:47 05:47 WBC 5.1 RBC 4.22 L Hgb 12.8 L Hct 39.2 MCV 93 MCH 30.4 MCHC 32.8 RDW 12.6 Plt Count 236 Seg Neutrophils % 43.2 Lymphocytes % 41.7 Monocytes % 9.9 Eosinophils % 4.1 Basophils % 1.1 Absolute Neutrophils 2.2 Absolute Lymphocytes 2.1 Absolute Monocytes 0.5 Absolute Eosinophils 0.2 Absolute Basophils 0.1 Sodium 138.9 Potassium 4.8 Chloride 104 Carbon Dioxide 28 Anion Gap 7 BUN 13 Creatinine 0.77 Est GFR ( Amer) > 60 Est GFR (Non-Af Amer) > 60 Glucose 89 Calcium 9.3 Impressions: Foot X-Ray 03/20/19 07:46 IMPRESSION: No evidence of osteomyelitis. Assessment and Plan - Diagnosis (1) Cellulitis of both feet Is this a current diagnosis for this admission?: Yes Plan: Slightly improving. Continue IV clindamycin. Plan to switch to PO antibiotics and anticipate discharge in the next 24 to 48 hours if both feet continues to show improvement. - Time Time Spent with patient: 15-24 minutes
[2019-03-24] MEDS: OXYCODONE-ACETAMINOPHEN 5-325 MG TABLET PO PRN (21:09)
[2019-03-25] MEDS: CLINDAMYCIN 300 MG/D5W RTU 300 MG/50 ML RTUPB IV SCH (06:07)
[2019-03-25] MEDS: MUPIROCIN 2% OINTMENT 22 GM TP SCH (10:01)
[2019-03-25] MEDS: SODIUM HYPOCHLORITE 0.25% SOLN 473 ML BOTTLE TP SCH (10:01)
[2019-03-25] MEDS: ENOXAPARIN SODIUM INJ 40 MG/0.4 ML DISP.SYRIN SUBCUT SCH (10:02)
[2019-03-25] MEDS ORDERED: CLINDAMYCIN HCL 150 MG CAPSULE PO SCH (14:00)
[2019-03-25 15:36] VITALS: BP 124/67
--- NOTE | 2019-03-26 18:20 | PDOC DISCHARGE SUMMARY ---
General - Admit/Disc Date/PCP Admission Date/Primary Care Provider: 03/22/19 13:20 Discharge Date: 03/25/19 - Discharge Diagnosis (1) Cellulitis of both feet Is this a current diagnosis for this admission?: Yes - Additional Information Resuscitation Status: Full Code Discharge Diet: As Tolerated Discharge Activity: Activity As Tolerated, Balance Activity w/Rest Prescriptions: Clindamycin HCl [Cleocin 300 mg Capsule] 300 mg PO TID 3 Days #9 capsule Mupirocin [Bactroban 2% Ointment 22 gm] 1 applic TP BID #1 tube Sodium Hypochlorite [Dakin's 0.25% Soln 473 ml] 1 applic TP BID #2 bottle Home Medications: Clindamycin HCl [Cleocin 300 mg Capsule] 300 mg PO TID 3 Days #9 capsule 03/25/19 Mupirocin [Bactroban 2% Ointment 22 gm] 1 applic TP BID #1 tube 03/25/19 Sodium Hypochlorite [Dakin's 0.25% Soln 473 ml] 1 applic TP BID #2 bottle 03/25/19 History of Present Illness History of Present Illness: Admitting hospitalist's H&P: FRANCISCO AGARWAL is a 53 year old male who is homeless presents with a cellulitis on the dorsal aspect of bilateral feet. Patient states this is worsened over last several days he was given a prescription for antibiotics but cannot afford them. He had nor treatment prior to arrival no true aggravating factors. Hospital Course Hospital Course: This is a 53-year-old male who was admitted for bilateral feet cellulitis. He was started on IV clindamycin. He has multiple excoriations on both feet. He was also started on Dakin's solution treatment for both feet. Patient did show significant improvement of erythema and tenderness in both feet. He was switched to clindamycin p.o. and continued to show improvement. He will be discharged on p.o. clindamycin. Discharge planning to assist with his home antibiotics. Physical Exam Vital Signs: Temp Pulse Resp BP Pulse Ox 97.9 F 50 L 16 124/67 99 03/25/19 15:27 03/25/19 15:27 03/25/19 15:27 03/25/19 15:27 03/25/19 15:27 Intake & Output 03/25/19 03/26/19 03/27/19 06:59 06:59 06:59 Intake Total 1724 50 Output Total 2310 Balance -586 50 Weight 172 lb 2.896 oz General appearance: PRESENT: no acute distress, well-developed, well-nourished Head exam: PRESENT: atraumatic, normocephalic Eye exam: PRESENT: conjunctiva pink, EOMI, PERRLA. ABSENT: scleral icterus Ear exam: PRESENT: normal external ear exam Mouth exam: PRESENT: moist, tongue midline Neck exam: ABSENT: carotid bruit, JVD, lymphadenopathy, thyromegaly Respiratory exam: PRESENT: clear to auscultation kyra. ABSENT: rales, rhonchi, wheezes Cardiovascular exam: PRESENT: RRR. ABSENT: diastolic murmur, rubs, systolic murmur Pulses: PRESENT: normal dorsalis pedis pul GI/Abdominal exam: PRESENT: normal bowel sounds, soft. ABSENT: distended, guarding, mass, organolmegaly, rebound, tenderness Rectal exam: PRESENT: deferred Extremities exam: PRESENT: full ROM. ABSENT: calf tenderness, clubbing, pedal edema Musculoskeletal exam: PRESENT: other - Significantly improved erythema on both feet, multiple excoriations on the dorsal aspect of both feet Neurological exam: PRESENT: alert, awake, oriented to person, oriented to place, oriented to time, oriented to situation, CN II-XII grossly intact. ABSENT: motor sensory deficit Results Laboratory Results: 03/24/19 05:47 03/24/19 05:47 Impressions: Foot X-Ray 03/20/19 07:46 IMPRESSION: No evidence of osteomyelitis. Qualifiers - * PATIENT BEING DISCHARGED WITH ANY OF THE FOLLOWING DIAGNOSIS: No Acute Heart Failure - Is this a Heart Failure Patient?: No LVEF < 40%?: No- if no continue to question #3 3. Anticoagulant therapy for permanect/persistent/paraoxysmal Afib or Aflutter: N/A
== END 2019-03-25 17:04 | disposition home or self-care (01) | DRG 603 ==
LOC: ER 02:18 → EH 09:14 → 4N 13:09 → OBSVTOIN 03-22 13:20
PROVIDERS: ADMIT Hospitalist; ATTEND Hospitalist
DX: L03.116 Cellulitis of left lower limb (principal); L03.115 Cellulitis of right lower limb; I10 Essential (primary) hypertension; E11.9 Type 2 diabetes mellitus without complications; F17.210 Nicotine dependence, cigarettes, uncomplicated; Z59.0 Homelessness; Z88.0 Allergy status to penicillin; Z82.49 Family history of ischemic heart disease and other diseases of the circulatory system; Z82.3 Family history of stroke; Z86.14 Personal history of Methicillin resistant Staphylococcus aureus infection
CPT/HCPCS: 36415; 80048; 80053; 85025; 85027; 85652; 86141; 87040; 96365; 96366; 96372; 96375; 99284; G0378; J1650; J1885; J3490

== ENCOUNTER 2019-06-16 05:53 | Inpatient (IN) | payer SELFPAY ==
[2019-06-16] MEDS ORDERED: ACETAMINOPHEN 325 MG TABLET PO ONE (06:49)
[2019-06-16] MEDS ORDERED: CEFTRIAXONE 1 GM/D5W RTU 1 GM/50 ML RTUPB IV ONE (07:42)
[2019-06-16] MEDS ORDERED: VANCOMYCIN HCL INJ 1000 MG VIAL IV ONE (07:43)
--- NOTE | 2019-06-16 07:44 | ER Document Report ---
ED Medical Screen (RME) - General Chief Complaint: Foot Pain Stated Complaint: SWOLLEN FOOT Time Seen by Provider: 06/16/19 06:44 Notes: 53-year-old male who is homeless, chief complaint of swelling and pain with spreading redness on the top of his right foot to his leg, he states that it first was dry and itchy, he admits that he was scratching the area, he states after this it started getting red and tender, he states it was draining pus from his top of his foot this morning so he came into be evaluated. He has had cellulitis in his legs/feet in the past, he denies a history of diabetes, tetanus is up-to-date within 5 years reportedly. TRAVEL OUTSIDE OF THE [place] IN LAST 30 DAYS: No - Related Data Allergies/Adverse Reactions: Penicillins Allergy (Verified 03/14/19 08:02) Past Medical History - Past Medical History Cardiac Medical History: Reports: Hx Hypertension Endocrine Medical History: Reports: Hx Diabetes Mellitus Type 2 - borderline Renal/ Medical History: Denies: Hx Peritoneal Dialysis Skin Medical History: Reports Hx MRSA - Immunizations Immunizations up to date: Yes Hx Diphtheria, Pertussis, Tetanus Vaccination: Yes Physical Exam - Vital signs Vitals: Temp Pulse Resp BP Pulse Ox 98.4 F 80 16 138/99 H 100 06/16/19 05:57 06/16/19 05:57 06/16/19 05:57 06/16/19 05:57 06/16/19 05:57 - Extremities General lower extremity: Other - Swelling, redness, excoriated dorsum of the right foot, soft tissue swelling of the foot as well. Course - Re-evaluation Re-evalutation: 06/16/19 07:44 I have greeted and performed a rapid initial assessment of this patient. A comprehensive ED assessment and evaluation of the patient, analysis of test results and completion of the medical decision making process will be conducted by additional ED providers. - Vital Signs Vital signs: Temp Pulse Resp BP Pulse Ox 98.4 F 80 16 138/99 H 100 06/16/19 05:57 06/16/19 05:57 06/16/19 05:57 06/16/19 05:57 06/16/19 05:57
[2019-06-16 07:51] LABS: ABSOLUTE EOSINOPHILS # (AUTO) 0.2 10^3/uL (0.0-0.6); ABSOLUTE LYMPHOCYTES (AUTO) 1.5 10^3/uL (0.5-4.7); ABSOLUTE MONOCYTES (AUTO) 0.6 10^3/uL (0.1-1.4); BASOPHILS % (AUTO) 0.3 % (0-2); EOSINOPHILS % (AUTO) 2.4 % (0-6); HEMATOCRIT 40.3 % (37.9-51.0); HEMOGLOBIN 13.3 g/dL (13.5-17.0); LYMPHOCYTES % (AUTO) 20.9 % (13-45); MEAN CORPUSCULAR HGB CONC 32.9 g/dL (32.0-36.0); MEAN CORPUSCULAR VOLUME 94 fl (80-97); MONOCYTES % (AUTO) 8.3 % (3-13); PLATELET COUNT 186 10^3/uL (150-450); RED BLOOD COUNT 4.28 10^6/uL (4.35-5.55); RED CELL DISTRIBUTION WIDTH 14.1 % (11.5-14.0); SEGMENTED NEUTROPHILS % (AUTO) 68.1 % (42-78); TOTAL CELLS COUNTED % (AUTO) 100 %; WHITE BLOOD COUNT 7.3 10^3/uL (4.0-10.5)
[2019-06-16 08:05] LABS: BLOOD UREA NITROGEN 9 mg/dL (7-20); CALCIUM 9.1 mg/dL (8.4-10.2); GLUCOSE 103 mg/dL (75-110)
[2019-06-16 08:13] LABS: ANION GAP 6 (5-19); CARBON DIOXIDE 31 mmol/L (22-30); CHLORIDE 100 mmol/L (98-107)
--- NOTE | 2019-06-16 08:31 | RADIOLOGY REPORT (SQ) ---
EXAM DESCRIPTION: FOOT RIGHT COMPLETE COMPLETED DATE/TIME: 06/16/2019 8:15 am REASON FOR STUDY: swelling infection, pain; gas? foreign body? COMPARISON: None. NUMBER OF VIEWS: Three views. TECHNIQUE: AP, lateral and oblique radiographic images acquired of the right foot. LIMITATIONS: None. FINDINGS: MINERALIZATION: Normal. BONES: No acute fracture or dislocation. No osseous lesion or erosion. 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 The tarsometatarsal alignment is preserved. SOFT TISSUES: Soft tissue swelling at the dorsal aspect of the midfoot ; there is no radiopaque forei gn body or subcutaneous emphysema. OTHER: No other findings. IMPRESSION: Soft tissue swelling at the dorsal aspect of the midfoot without an associated osseous a bnormality, radiopaque foreign body or subcutaneous emphysema. TECHNICAL DOCUMENTATION: JOB ID: [id number] [employer]- All Rights Reserved Reading location - IP/workstation name: [email or web address]
--- NOTE | 2019-06-16 08:59 | ER Document Report ---
ED Extremity Problem, Lower - General Chief Complaint: Foot Pain Stated Complaint: SWOLLEN FOOT Time Seen by Provider: 06/16/19 06:44 Notes: Patient is a 53-year-old male with a history of hypertension who presents to the emergency department with a chief complaint of right foot pain. Patient states over the past week he has been walking a lot as he is homeless. Patient reports issues have been rubbing the top of his foot. Patient reports open wounds to the top of his foot with increased swelling and redness. Patient reports is unable to bear weight as it is significantly painful and tender to touch. Patient reports he feels like the heat is spreading up into his right lower leg. Patient reports chills without notable fever. Patient denies nausea, vomiting or diarrhea. Patient reports the top of his foot is oozing a yellow discharge. Patient reports he does have a history of MRSA and has been admitted earlier this year for cellulitis of his legs. TRAVEL OUTSIDE OF THE [place] IN LAST 30 DAYS: No - Related Data Allergies/Adverse Reactions: Penicillins Allergy (Verified 03/14/19 08:02) Past Medical History - General Information source: Patient - Social History Smoking Status: Current Every Day Smoker Frequency of alcohol use: Heavy Drug Abuse: None Lives with: Homeless Family History: Reviewed & Not Pertinent, CAD, CVA Patient has suicidal ideation: No Patient has homicidal ideation: No - Past Medical History Cardiac Medical History: Reports: Hx Hypertension Pulmonary Medical History: Reports: None EENT Medical History: Reports: None Neurological Medical History: Reports: None Endocrine Medical History: Reports: Hx Diabetes Mellitus Type 2 - borderline Renal/ Medical History: Reports: None. Denies: Hx Peritoneal Dialysis Malignancy Medical History: Reports None GI Medical History: Reports: None Musculoskeletal Medical History: Reports None Skin Medical History: Reports Hx Cellulitis, Reports Hx MRSA Psychiatric Medical History: Reports: None Traumatic Medical History: Reports: None Infectious Medical History: Reports: None Surgical Hx: Negative - Immunizations Immunizations up to date: Yes Hx Diphtheria, Pertussis, Tetanus Vaccination: Yes Hx Pneumococcal Vaccination: 01/28/13 Review of Systems - Review of Systems Constitutional: See HPI EENT: No symptoms reported Cardiovascular: No symptoms reported Respiratory: No symptoms reported Gastrointestinal: No symptoms reported Genitourinary: No symptoms reported Male Genitourinary: No symptoms reported Musculoskeletal: See HPI Skin: See HPI Hematologic/Lymphatic: No symptoms reported Neurological/Psychological: No symptoms reported Physical Exam - Vital signs Vitals: Temp Pulse Resp BP Pulse Ox 98.4 F 80 16 138/99 H 100 06/16/19 05:57 06/16/19 05:57 06/16/19 05:57 06/16/19 05:57 06/16/19 05:57 Interpretation: Normal - Notes Notes: GENERAL: Well-appearing, in no acute distress. HEAD: Atraumatic, normocephalic. EYES: Pupils equal round and reactive to light, extraocular movements intact, sclera anicteric, conjunctiva are normal. ENT: Nares patent, oropharynx clear without exudates. Moist mucous membranes. NECK: Normal range of motion, supple without lymphadenopathy or JVD. LUNGS: Breath sounds clear to auscultation bilaterally and equal. No wheezes or rales. + intermittent dry cough. Scattered rhonchi that clears with cough. HEART: Regular rate and rhythm without murmurs, rubs or gallops. ABDOMEN: Soft, nontender, normoactive bowel sounds. No guarding, no rebound. No masses appreciated. BACK: No cervical, thoracic, lumbar midline tenderness. No saddle anesthesia, normal distal neurovascular exam. GENITOURINARY: Deferred. EXTREMITIES: + edema and erythema noted to the dorsal aspect of the right foot, + clear to yellow drainage. + Excoriation noted to the top of the foot. NEUROLOGICAL: Cranial nerves II through XII grossly intact. Normal speech, normal gait. PSYCH: Normal mood, normal affect. SKIN: Warm, Dry, normal turgor, no rashes or lesions noted. Course - Re-evaluation Re-evalutation: 06/16/19 08:59 Upon initial assessment patient is resting comfortably on stretcher. Patient has had IV antibiotics initiated by the previous provider. Patient does have a history of MRSA and has been admitted multiple times for lower extremity cellulitis. Patient reports he is homeless and does not have a primary care physician. 06/16/19 09:04 I did speak with Nalini Aguilar NP with the hospitalist group who will come down and see the patient. - Vital Signs Vital signs: Temp Pulse Resp BP Pulse Ox 98.4 F 80 16 138/99 H 100 06/16/19 05:57 06/16/19 05:57 06/16/19 05:57 06/16/19 05:57 06/16/19 05:57 - Laboratory Result Diagrams: 06/16/19 06:45 06/16/19 06:45 Laboratory results interpreted by me: 06/16/19 06/16/19 06:45 06:45 RBC 4.28 L Hgb 13.3 L RDW 14.1 H Carbon Dioxide 31 H - Diagnostic Test Radiology reviewed: Reports reviewed Radiology results interpreted by me: 06/16/19 08:59 Foot X-Ray 06/16/19 07:42 IMPRESSION: Soft tissue swelling at the dorsal aspect of the midfoot without an associated osseous abnormality, radiopaque foreign body or subcutaneous emphysema. Discharge - Discharge Clinical Impression: Cellulitis of right foot, Swelling of right foot Condition: Stable Disposition: ADMITTED INPATIENT Admitting Provider: Lindsay (Hospitalist) Unit Admitted: Medical Floor
[2019-06-16] MEDS ORDERED: MORPHINE SULFATE 10 MG/ML INJ IV ONE (09:49)
[2019-06-16] MEDS ORDERED: ONDANSETRON HCL INJ/PF 4 MG/2 ML SDV IV PRN (11:20)
[2019-06-16] MEDS ORDERED: ALBUTEROL SULFATE 0.083% NEB 2.5 MG/3 ML AMPUL NEB PRN (11:20)
[2019-06-16] MEDS ORDERED: ACETAMINOPHEN 325 MG TABLET PO PRN (11:20)
[2019-06-16] MEDS ORDERED: MAG HYDROX/AL HYDROX/SIMETH SUSP 30 ML UDCUP PO PRN (11:20)
[2019-06-16] MEDS ORDERED: VANCOMYCIN HCL 0 MG in DEXTROSE 5%-WATER 250 ML IV NR (11:30)
--- NOTE | 2019-06-16 11:35 | PDOC H&P ---
History of Present Illness Admission Date/PCP: 06/16/19 10:37 Patient complains of: right foot pain History of Present Illness: FRANCISCO AGARWAL is a 53 year old male, homeless individual, who reports his only past medical history is tobacco dependence with continuous use and presented to the emergency department today with a complaint of 1 week of progressively w orsening right foot erythema, edema, and pain. Evaluation in the emergency room revealed hypertension, unremarkable CBC and chemistry, and benign foot imaging. On exam he is found to have right foot erythema, edema, and dorsal excoriation with serous weeping. He was provided IV vancomycin and Rocephin. He is referred to the hospitalist service for admission and management of the above-mentioned complaints and findings. Past Medical History Cardiac Medical History: Reports: Hypertension Pulmonary Medical History: Reports: None EENT Medical History: Reports: None Neurological Medical History: Reports: None Endocrine Medical History: Reports: None Renal/ Medical History: Reports: None Malignancy Medical History: Reports: None GI Medical History: Reports: None Musculoskeltal Medical History: Reports: None Psychiatric Medical History: Reports: Tobacco Dependency Traumatic Medical History: Reports: None Infectious Medical History: Reports: None Past Surgical History Past Surgical History: Reports: None Social History Information Source: Patient Lives with: Homeless Smoking Status: Current Every Day Smoker Cigarettes Packs Per Day: 1 Frequency of Alcohol Use: Occasional Hx Recreational Drug Use: No Hx Prescription Drug Abuse: No - Advance Directive Resuscitation Status: Full Code Family History Family History: Reviewed & Not Pertinent, CAD, CVA Parental Family History Reviewed: Yes Children Family History Reviewed: Yes Sibling(s) Family History Reviewed.: Yes Medication/Allergy Home Medications: No Home Medications 06/16/19 Allergies/Adverse Reactions: Penicillins Allergy (Verified 03/14/19 08:02) Review of Systems Constitutional: PRESENT: fever(s). ABSENT: chills, headache(s), weight gain, weight loss Eyes: ABSENT: visual disturbances Ears: ABSENT: hearing changes Cardiovascular: ABSENT: chest pain, dyspnea on exertion, edema, orthropnea, palpitations Respiratory: ABSENT: cough, hemoptysis Gastrointestinal: ABSENT: abdominal pain, constipation, diarrhea, hematemesis, hematochezia, nausea, vomiting Genitourinary: ABSENT: dysuria, hematuria Musculoskeletal: ABSENT: joint swelling Integumentary: PRESENT: as per HPI, erythema, lesions, wounds. ABSENT: rash Neurological: ABSENT: abnormal gait, abnormal speech, confusion, dizziness, focal weakness, syncope Psychiatric: ABSENT: anxiety, depression, homidical ideation, suicidal ideation Endocrine: ABSENT: cold intolerance, heat intolerance, polydipsia, polyuria Hematologic/Lymphatic: ABSENT: easy bleeding, easy bruising Physical Exam Vital Signs: Temp Pulse Resp BP Pulse Ox 98.4 F 80 16 138/99 H 100 06/16/19 05:57 06/16/19 05:57 06/16/19 05:57 06/16/19 05:57 06/16/19 05:57 Intake & Output 06/15/19 06/16/19 06/17/19 06:59 06:59 06:59 Intake Total 50 Balance 50 Weight 81.81 kg General appearance: PRESENT: no acute distress, disheveled, well-developed, well-nourished - Overweight Head exam: PRESENT: atraumatic, normocephalic Eye exam: PRESENT: conjunctiva pink, EOMI, PERRLA. ABSENT: scleral icterus Mouth exam: PRESENT: moist, tongue midline Teeth exam: PRESENT: poor dentation Neck exam: ABSENT: carotid bruit, JVD, lymphadenopathy, thyromegaly Respiratory exam: PRESENT: clear to auscultation kyra, symmetrical, unlabored. ABSENT: rales, rhonchi, wheezes Cardiovascular exam: PRESENT: RRR, +S1, +S2, systolic murmur. ABSENT: diastolic murmur, rubs Pulses: PRESENT: normal dorsalis pedis pul Vascular exam: PRESENT: normal capillary refill GI/Abdominal exam: PRESENT: normal bowel sounds, soft. ABSENT: distended, guarding, mass, organolmegaly, rebound, tenderness Rectal exam: PRESENT: deferred Extremities exam: PRESENT: full ROM, pedal edema - Right foot, tenderness. ABSENT: calf tenderness, clubbing Neurological exam: PRESENT: alert, awake, oriented to person, oriented to place, oriented to time, oriented to situation, CN II-XII grossly intact. ABSENT: motor sensory deficit Psychiatric exam: PRESENT: agitated, appropriate affect, normal mood. ABSENT: homicidal ideation, suicidal ideation Skin exam: PRESENT: dry, erythema - Right foot erythema, and edema; does not extend past ankle. Excoriation with serous weeping to the dorsal aspect. Patient reports calf tightness; none palpable., warm. ABSENT: cyanosis, rash Results Laboratory Results: 06/16/19 06:45 06/16/19 06:45 06/16/19 06/16/19 06:45 06:45 WBC 7.3 RBC 4.28 L Hgb 13.3 L Hct 40.3 MCV 94 MCH 31.0 MCHC 32.9 RDW 14.1 H Plt Count 186 Seg Neutrophils % 68.1 Sodium 137.4 Potassium 4.0 Chloride 100 Carbon Dioxide 31 H Anion Gap 6 BUN 9 Creatinine 0.82 Est GFR ( Amer) > 60 Glucose 103 Calcium 9.1 Impressions: Foot X-Ray 06/16/19 07:42 IMPRESSION: Soft tissue swelling at the dorsal aspect of the midfoot without an associated osseous abnormality, radiopaque foreign body or subcutaneous emphysema. Assessment and Plan - Diagnosis (1) Cellulitis of right foot Is this a current diagnosis for this admission?: Yes (2) Hypertension Is this a current diagnosis for this admission?: Yes (3) Tobacco dependence Is this a current diagnosis for this admission?: Yes (4) Homeless Is this a current diagnosis for this admission?: Yes - Plan Summary Summary: The patient is admitted to the medical floor. Blood cultures are pending. He is empirically placed on IV vancomycin and Rocephin based on prior wound culture results. Patient does have Hx of MRSA wound; Bactrim sensitive. Patient to shower daily, keep extremity elevated. Low-dose analgesics as needed. If rapid improvement; consider d/c on Bactrim. He will be started on lisinopril for his hypertension. NicoDerm patches for his tobacco dependence. Discharge planning is consulted due to his homelessness. - Time Time Spent with patient: 35 or more minutes Smoking Cessation Education: 3 to 10 minutes Medications reviewed and adjusted accordingly: Yes Anticipated discharge: Home Within: within 72 hours - Inpatient Certification Based on my medical assessment, after consideration of the patient's comorbidities, presenting symptoms, or acuity I expect that the services needed warrant INPATIENT care.: Yes I certify that my determination is in accordance with my understanding of Medicare's requirements for reasonable and necessary INPATIENT services [42 CFR 412.3e].: Yes Medical Necessity: Need for IV Antibiotics, Risk of Complication if Not Cared For in Hospital
[2019-06-16] MEDS: NICOTINE 21 MG/24 HR PATCH.TD24 TD SCH (12:53)
[2019-06-16] MEDS: LISINOPRIL 10 MG TABLET PO SCH (12:55)
[2019-06-16] MEDS: HEPARIN SOD (PORCINE) 5,000 UNIT/ML 1 ML VIAL SUBCUT SCH ×2 (19:10→22:08)
[2019-06-16] MEDS: OXYCODONE-ACETAMINOPHEN 5-325 MG TABLET PO PRN (22:07)
[2019-06-16] MEDS: VANCOMYCIN HCL 1,250 MG in DEXTROSE 5%-WATER 250 ML IV SCH (22:08)
[2019-06-16] MEDS: FAMOTIDINE 20 MG TABLET PO SCH (22:08)
[2019-06-17] MEDS: HEPARIN SOD (PORCINE) 5,000 UNIT/ML 1 ML VIAL SUBCUT SCH ×3 (05:02→21:23)
[2019-06-17 07:58] LABS: HEMATOCRIT 39.5 % (37.9-51.0); HEMOGLOBIN 13.1 g/dL (13.5-17.0); MEAN CORPUSCULAR HEMOGLOBIN 31.2 pg (27.0-33.4); MEAN CORPUSCULAR HGB CONC 33.2 g/dL (32.0-36.0); MEAN CORPUSCULAR VOLUME 94 fl (80-97); PLATELET COUNT 182 10^3/uL (150-450); RED CELL DISTRIBUTION WIDTH 13.4 % (11.5-14.0); WHITE BLOOD COUNT 5.2 10^3/uL (4.0-10.5)
--- NOTE | 2019-06-17 08:02 | XCELERA REPORT ---
[address] [facility] [address] Lower Extremity Venous Evaluation Procedure: Color flow and duplex imaging of the veins of the right lower extremity as well as the left Common Femoral vein. Right Sided Venous Evaluation Normal vessel filling wall to wall, compression and augmentation as well as Colour flow down to the infrageniculate veins. Left Sided Venous Evaluation The left common femoral vein is fully compressible. Spontaneous and phasic flow is present in the left common femoral vein. Interpretation Summary No duplex evidence of DVT or obstruction in the right lower extremity nor in the left Common Femoral vein. Name: FRANCISCO AGARWAL Age: 53 yrs Gender: Male : 1965 Patient Status: Inpatient Patient Location: [facility]^A Study Date: 06/16/2019 07:00 PM Reason For Study: RLE edema Ordering Physician: ROSY AREVALO Performed By: Mar Amador : ROSY AREVALO > Schuyler Chaparro
[2019-06-17 08:15] LABS: ANION GAP 5 (5-19); BLOOD UREA NITROGEN 7 mg/dL (7-20); CALCIUM 9.3 mg/dL (8.4-10.2); CARBON DIOXIDE 33 mmol/L (22-30); CHLORIDE 100 mmol/L (98-107); GLUCOSE 99 mg/dL (75-110); POTASSIUM 4.3 mmol/L (3.6-5.0)
[2019-06-17] MEDS: OXYCODONE-ACETAMINOPHEN 5-325 MG TABLET PO PRN ×2 (11:36→21:31)
[2019-06-17] MEDS: LISINOPRIL 10 MG TABLET PO SCH (11:36)
[2019-06-17] MEDS: FAMOTIDINE 20 MG TABLET PO SCH ×2 (11:37→21:23)
[2019-06-17] MEDS: NICOTINE 21 MG/24 HR PATCH.TD24 TD SCH (11:37)
[2019-06-17] MEDS: CEFTRIAXONE 1 GM/D5W RTU 1 GM/50 ML RTUPB IV SCH (11:38)
[2019-06-17] MEDS: DOCUSATE SODIUM 100 MG CAPSULE PO SCH (12:05)
[2019-06-17] MEDS: SILVER SULFADIAZINE 1% CREAM 25 GM TP SCH (12:49)
[2019-06-17] MEDS: VANCOMYCIN HCL 1,250 MG in DEXTROSE 5%-WATER 250 ML IV SCH ×2 (12:49→21:30)
--- NOTE | 2019-06-17 19:06 | PDOC PROGRESS REPORT ---
Subjective Progress Note for:: 06/17/19 Subjective:: FRANCISCO AGARWAL is a 53 year old male, homeless individual, who reports his only past medical history is tobacco dependence with continuous use who was admitted 06/16/2019 for right foot cellulitis. Patient was seen on morning rounds. He is found resting in bed comfortably on room air. He reports continued foot pain; but declines need for increased pain medications. He does note increased drainage. But otherwise denies symptoms. He specifically denies fever, chills, malaise, chest pain, palpitations, dyspnea, cough, abdominal pain, nausea vomiting or diarrhea. No questions or concerns. No concerns per nursing. Reason For Visit: CELLULITIS Physical Exam Vital Signs: Temp Pulse Resp BP Pulse Ox 98.0 F 50 L 18 144/82 H 100 06/17/19 16:59 06/17/19 16:59 06/17/19 16:59 06/17/19 16:59 06/17/19 16:59 Intake & Output 06/16/19 06/17/19 06/18/19 06:59 06:59 06:59 Intake Total 1022 300 Output Total 0 Balance 1022 300 Weight 81.81 kg 81.1 kg General appearance: PRESENT: no acute distress, disheveled - body odor, well- developed, well-nourished - Overweight Head exam: PRESENT: atraumatic, normocephalic Eye exam: PRESENT: conjunctiva pink, EOMI, PERRLA. ABSENT: scleral icterus Ear exam: PRESENT: normal external ear exam Mouth exam: PRESENT: moist, tongue midline Neck exam: ABSENT: carotid bruit, JVD, lymphadenopathy, thyromegaly Respiratory exam: PRESENT: clear to auscultation kyra, symmetrical, unlabored. ABSENT: rales, rhonchi, wheezes Cardiovascular exam: PRESENT: RRR, +S1, +S2. ABSENT: diastolic murmur, rubs, systolic murmur Pulses: PRESENT: normal dorsalis pedis pul Vascular exam: PRESENT: normal capillary refill GI/Abdominal exam: PRESENT: normal bowel sounds, soft. ABSENT: distended, guarding, mass, organolmegaly, rebound, tenderness Rectal exam: PRESENT: deferred Extremities exam: PRESENT: full ROM. ABSENT: calf tenderness, clubbing, pedal edema Neurological exam: PRESENT: alert, awake, oriented to person, oriented to place, oriented to time, oriented to situation, CN II-XII grossly intact. ABSENT: motor sensory deficit Psychiatric exam: PRESENT: appropriate affect, normal mood. ABSENT: homicidal ideation, suicidal ideation Skin exam: PRESENT: dry, erythema - Erythema with serous drainage to dorsal aspect of right foot; overall improved with decreased edema., warm. ABSENT: cyanosis, rash Results Laboratory Results: 06/17/19 07:41 06/17/19 07:41 06/17/19 06/17/19 07:41 07:41 WBC 5.2 RBC 4.20 L Hgb 13.1 L Hct 39.5 MCV 94 MCH 31.2 MCHC 33.2 RDW 13.4 Plt Count 182 Sodium 137.9 Potassium 4.3 Chloride 100 Carbon Dioxide 33 H Anion Gap 5 BUN 7 Creatinine 0.89 Est GFR ( Amer) > 60 Glucose 99 Calcium 9.3 Impressions: Foot X-Ray 06/16/19 07:42 IMPRESSION: Soft tissue swelling at the dorsal aspect of the midfoot without an associated osseous abnormality, radiopaque foreign body or subcutaneous emphysema. Assessment and Plan - Diagnosis (1) Cellulitis of right foot Is this a current diagnosis for this admission?: Yes Plan: Improved appearance today. WBCs remain normal, patient afebrile. Blood cultures remain negative at 24 hours The patient is admitted to the medical floor. He is empirically placed on IV vancomycin and Rocephin based on prior wound culture results; patient does have history of MRSA. Patient to shower daily, keep extremity elevated. Low-dose analgesics as needed. Silvadene and dry dressing daily and as needed. Cconsider d/c on Bactrim if continued improvement tomorrow. (2) Hypertension Is this a current diagnosis for this admission?: Yes Plan: Improved blood pressures. Continue lisinopril 10 mg daily. Cardiac diet. (3) Tobacco dependence Is this a current diagnosis for this admission?: Yes Plan: Smoking cessation encouraged. Nicotine replacement therapy provided. (4) Homeless Is this a current diagnosis for this admission?: Yes Plan: Discharge planning is consulted. - Time Time Spent with patient: 15-24 minutes Medications reviewed and adjusted accordingly: Yes Anticipated discharge: Home Within: within 24 hours
[2019-06-17 22:17] LABS: VANCOMYCIN,TROUGH 11.6 ug/mL (5.0-20.0)
[2019-06-18 05:39] LABS: HEMATOCRIT 39.3 % (37.9-51.0); HEMOGLOBIN 12.9 g/dL (13.5-17.0); MEAN CORPUSCULAR HEMOGLOBIN 30.9 pg (27.0-33.4); MEAN CORPUSCULAR HGB CONC 32.9 g/dL (32.0-36.0); MEAN CORPUSCULAR VOLUME 94 fl (80-97); PLATELET COUNT 177 10^3/uL (150-450); RED BLOOD COUNT 4.18 10^6/uL (4.35-5.55); RED CELL DISTRIBUTION WIDTH 13.3 % (11.5-14.0); WHITE BLOOD COUNT 5.5 10^3/uL (4.0-10.5)
[2019-06-18] MEDS: HEPARIN SOD (PORCINE) 5,000 UNIT/ML 1 ML VIAL SUBCUT SCH ×3 (06:41→22:34)
[2019-06-18] MEDS ORDERED: ONDANSETRON HCL INJ/PF 4 MG/2 ML SDV IV PRN (08:00)
[2019-06-18] MEDS: LISINOPRIL 10 MG TABLET PO SCH (10:25)
[2019-06-18] MEDS: DOCUSATE SODIUM 100 MG CAPSULE PO SCH (10:25)
[2019-06-18] MEDS: FAMOTIDINE 20 MG TABLET PO SCH ×2 (10:25→22:34)
[2019-06-18] MEDS: CEFTRIAXONE 1 GM/D5W RTU 1 GM/50 ML RTUPB IV SCH (10:25)
[2019-06-18] MEDS: VANCOMYCIN HCL 1,250 MG in DEXTROSE 5%-WATER 250 ML IV SCH (10:26)
[2019-06-18] MEDS: NICOTINE 21 MG/24 HR PATCH.TD24 TD SCH (10:26)
[2019-06-18] MEDS: SILVER SULFADIAZINE 1% CREAM 25 GM TP SCH (10:26)
[2019-06-18] MEDS: OXYCODONE-ACETAMINOPHEN 5-325 MG TABLET PO PRN ×3 (10:36→22:34)
--- NOTE | 2019-06-18 15:30 | PDOC PROGRESS REPORT ---
Subjective Progress Note for:: 06/18/19 Subjective:: FRANCISCO AGARWAL is a 53 year old male, homeless individual, who reports his only past medical history is tobacco dependence with continuous use who was admitted 06/16/2019 for right foot cellulitis. Patient was seen on afternoon rounds. He is found resting in bed comfortably on room air. He reports continued foot pain; but declines need for increased pain medications. He otherwise denies fever, chills, malaise, chest pain, palpitations, dyspnea, cough, abdominal pain, nausea vomiting or diarrhea. No questions or concerns. No concerns per nursing. Reason For Visit: CELLULITIS Physical Exam Vital Signs: Temp Pulse Resp BP Pulse Ox 98.4 F 61 16 119/75 98 06/18/19 08:25 06/18/19 08:25 06/18/19 08:25 06/18/19 08:25 06/18/19 08:25 Intake & Output 06/17/19 06/18/19 06/19/19 06:59 06:59 06:59 Intake Total 1022 642 790 Output Total 0 Balance 1022 642 790 Weight 81.1 kg 77 kg General appearance: PRESENT: no acute distress, disheveled - body odor, well- developed, well-nourished - overwight Head exam: PRESENT: atraumatic, normocephalic Eye exam: PRESENT: conjunctiva pink, EOMI, PERRLA. ABSENT: scleral icterus Ear exam: PRESENT: normal external ear exam Mouth exam: PRESENT: moist, tongue midline Neck exam: ABSENT: carotid bruit, JVD, lymphadenopathy, thyromegaly Respiratory exam: PRESENT: clear to auscultation kyra, symmetrical, unlabored. A BSENT: rales, rhonchi, wheezes Cardiovascular exam: PRESENT: RRR, +S1, +S2. ABSENT: diastolic murmur, rubs, systolic murmur Pulses: PRESENT: normal dorsalis pedis pul Vascular exam: PRESENT: normal capillary refill GI/Abdominal exam: PRESENT: normal bowel sounds, soft. ABSENT: distended, guarding, mass, organolmegaly, rebound, tenderness Rectal exam: PRESENT: deferred Extremities exam: PRESENT: full ROM. ABSENT: calf tenderness, clubbing, pedal edema Neurological exam: PRESENT: alert, awake, oriented to person, oriented to place, oriented to time, oriented to situation, CN II-XII grossly intact. ABSENT: motor sensory deficit Psychiatric exam: PRESENT: appropriate affect, normal mood. ABSENT: homicidal ideation, suicidal ideation Skin exam: PRESENT: dry, warm, other - Erythema and edema have resolved. Multiple small, shallow wound (?escoriation) to dorsum w/ scant serous drainage. ABSENT: cyanosis, intact, rash Results Laboratory Results: 06/18/19 04:55 06/17/19 07:41 06/18/19 04:55 WBC 5.5 RBC 4.18 L Hgb 12.9 L Hct 39.3 MCV 94 MCH 30.9 MCHC 32.9 RDW 13.3 Plt Count 177 Impressions: Foot X-Ray 06/16/19 07:42 IMPRESSION: Soft tissue swelling at the dorsal aspect of the midfoot without an associated osseous abnormality, radiopaque foreign body or subcutaneous emphysema. Assessment and Plan - Diagnosis (1) Cellulitis of right foot Is this a current diagnosis for this admission?: Yes Plan: Improved appearance today. WBCs remain normal, patient afebrile. Blood cultures remain negative at 48 hours The patient is admitted to the medical floor. He was empirically placed on IV vancomycin and Rocephin; discontinued Day #2 Will start Bactrim DS based on prior wound culture/MRSA hx. Patient to shower daily, keep extremity elevated. Low-dose analgesics as needed. Silvadene and dry dressing daily and as needed. (2) Hypertension Is this a current diagnosis for this admission?: Yes Plan: Normotensive blood pressures today Continue lisinopril 10 mg daily. Cardiac diet. (3) Tobacco dependence Is this a current diagnosis for this admission?: Yes Plan: Smoking cessation encouraged. Nicotine replacement therapy provided. (4) Homeless Is this a current diagnosis for this admission?: Yes Plan: Discharge planning is consulted. Discussed w/ SW today need for medication assistance (Bactrim DS BID x 7 days) - Time Time Spent with patient: 15-24 minutes Medications reviewed and adjusted accordingly: Yes Anticipated discharge: Home Within: within 24 hours
[2019-06-18] MEDS: SULFAMETHOXAZOLE/TRIMETHOPRIM 800-160 MG TABLET PO SCH (17:08)
[2019-06-19] MEDS: OXYCODONE-ACETAMINOPHEN 5-325 MG TABLET PO PRN (05:00)
[2019-06-19] MEDS: HEPARIN SOD (PORCINE) 5,000 UNIT/ML 1 ML VIAL SUBCUT SCH (05:01)
[2019-06-19] MEDS: FAMOTIDINE 20 MG TABLET PO SCH (09:28)
[2019-06-19] MEDS: SULFAMETHOXAZOLE/TRIMETHOPRIM 800-160 MG TABLET PO SCH (09:28)
[2019-06-19] MEDS: LISINOPRIL 10 MG TABLET PO SCH (09:28)
[2019-06-19] MEDS: NICOTINE 21 MG/24 HR PATCH.TD24 TD SCH (09:29)
[2019-06-19] MEDS: DOCUSATE SODIUM 100 MG CAPSULE PO SCH (09:29)
[2019-06-19] MEDS: SILVER SULFADIAZINE 1% CREAM 25 GM TP SCH (09:29)
[2019-06-19 11:52] VITALS: BP 145/79
--- NOTE | 2019-06-19 18:14 | PDOC DISCHARGE SUMMARY ---
Impression - Admit/DC Date/PCP Admission Date/Primary Care Provider: 06/16/19 10:37 Discharge Date: 06/19/19 - Discharge Diagnosis (1) Cellulitis of right foot Is this a current diagnosis for this admission?: Yes (2) Hypertension Is this a current diagnosis for this admission?: Yes (3) Tobacco dependence Is this a current diagnosis for this admission?: Yes (4) Homeless Is this a current diagnosis for this admission?: Yes - Additional Information Resuscitation Status: Full Code Discharge Diet: Regular Discharge Activity: Activity As Tolerated, Balance Activity w/Rest Referrals: [facility] [Outside] - 06/30/19 3:00 pm () Prescriptions: Nicotine [Nicoderm 21 mg/24 Hr Transderm Patch] 1 each TD DAILY #30 patch.td24 Lisinopril [Prinivil 10 mg Tablet] 10 mg PO DAILY #30 tablet Sulfamethoxazole/Trimethoprim [Septra-Ds 800-160 mg Tablet] 1 tab PO BID #14 tablet Home Medications: Acetaminophen [Tylenol 325 mg Tablet] 650 mg PO Q4HP PRN tablet 06/19/19 Lisinopril [Prinivil 10 mg Tablet] 10 mg PO DAILY #30 tablet 06/19/19 Nicotine [Nicoderm 21 mg/24 Hr Transderm Patch] 1 each TD DAILY #30 patch.td24 06/19/19 Silver Sulfadiazine [Silvadene 1% Cream 25 gm] 1 applic TP DAILY tube 06/19/19 Sulfamethoxazole/Trimethoprim [Septra-Ds 800-160 mg Tablet] 1 tab PO BID #14 tablet 06/19/19 History of Present Illiness History of Present Illness: FRANCISCO AGARWAL is a 53 year old male, homeless individual, who reports his only past medical history is tobacco dependence with continuous use and presented to the emergency department today with a complaint of 1 week of progressively worsening right foot erythema, edema, and pain. Evaluation in the emergency room revealed hypertension, unremarkable CBC and chemistry, and benign foot imaging. On exam he is found to have right foot erythema, edema, and dorsal excoriation with serous weeping. He was provided IV vancomycin and Rocephin. He is referred to the hospitalist service for admission and management of the above-mentioned complaints and findings. Hospital Course Hospital Course: The patient was in medical floor. He was empirically placed on IV vancomycin and Rocephin based upon previous wound culture results. His blood cultures remained negative at 48 hours and so IV antibiotic's were discontinued and he was transitioned to oral Bactrim. He was observed overnight with continued clinical appearance of his right foot cellulitis, normal vital signs, and negative blood cultures at 72 hours. Wound care was provided with gentle soap and water cleansing daily, Silvadene ointment, and clean dry dressing. the patient was noted to have elevated blood pressure; he was started on lisinopril 10 mg daily with adequate control; he is normotensive at time of discharge. He was provided nicotine replacement therapies; smoking cessation strongly encouraged. barge worker services were consulted to assist with his homelessness as well as to provide medication assistance recommendations. On day of discharge, patient is in stable condition, with clinical improvement of his cellulitis, negative blood cultures, normal vital signs and laboratory evaluation. He is discharged home on Bactrim with Silvadene ointment and instructions for self-care. He is advised to establish with a local PCP and to return to the emergency department as needed for concerning symptoms. Physical Exam Vital Signs: Temp Pulse Resp BP Pulse Ox 98.1 F 49 L 16 145/79 H 100 06/19/19 11:27 06/19/19 11:27 06/19/19 11:27 06/19/19 11:27 06/19/19 11:27 Intake & Output 06/18/19 06/19/19 06/20/19 06:59 06:59 06:59 Intake Total 642 2215 Output Total 0 Balance 642 2215 Weight 77 kg 81 kg General appearance: PRESENT: no acute distress, well-developed, well-nourished Head exam: PRESENT: atraumatic, normocephalic Eye exam: PRESENT: conjunctiva pink, EOMI, PERRLA. ABSENT: scleral icterus Ear exam: PRESENT: normal external ear exam Mouth exam: PRESENT: moist, tongue midline Neck exam: ABSENT: carotid bruit, JVD, lymphadenopathy, thyromegaly Respiratory exam: PRESENT: clear to auscultation kyra. ABSENT: rales, rhonchi, wheezes Cardiovascular exam: PRESENT: RRR. ABSENT: diastolic murmur, rubs, systolic murmur Pulses: PRESENT: normal dorsalis pedis pul Vascular exam: PRESENT: normal capillary refill GI/Abdominal exam: PRESENT: normal bowel sounds, soft. ABSENT: distended, guarding, mass, organolmegaly, rebound, tenderness Rectal exam: PRESENT: deferred Extremities exam: PRESENT: full ROM. ABSENT: calf tenderness, clubbing, pedal edema Neurological exam: PRESENT: alert, awake, oriented to person, oriented to place, oriented to time, oriented to situation, CN II-XII grossly intact. ABSENT: motor sensory deficit Psychiatric exam: PRESENT: appropriate affect, normal mood. ABSENT: homicidal ideation, suicidal ideation Skin exam: PRESENT: dry, intact, warm. ABSENT: cyanosis, rash Results Laboratory Results: WBC 5.5 10^3/uL (4.0-10.5) 06/18/19 04:55 RBC 4.18 10^6/uL (4.35-5.55) L 06/18/19 04:55 Hgb 12.9 g/dL (13.5-17.0) L 06/18/19 04:55 Hct 39.3 % (37.9-51.0) 06/18/19 04:55 MCV 94 fl (80-97) 06/18/19 04:55 MCH 30.9 pg (27.0-33.4) 06/18/19 04:55 MCHC 32.9 g/dL (32.0-36.0) 06/18/19 04:55 RDW 13.3 % (11.5-14.0) 06/18/19 04:55 Plt Count 177 10^3/uL (150-450) 06/18/19 04:55 Lymph % (Auto) 20.9 % (13-45) 06/16/19 06:45 [place] % (Auto) 8.3 % (3-13) 06/16/19 06:45 Eos % (Auto) 2.4 % (0-6) 06/16/19 06:45 Baso % (Auto) 0.3 % (0-2) 06/16/19 06:45 Absolute Neuts (auto) 5.0 10^3/uL (1.7-8.2) 06/16/19 06:45 Absolute Lymphs (auto) 1.5 10^3/uL (0.5-4.7) 06/16/19 06:45 Absolute Monos (auto) 0.6 10^3/uL (0.1-1.4) 06/16/19 06:45 Absolute Eos (auto) 0.2 10^3/uL (0.0-0.6) 06/16/19 06:45 Absolute Basos (auto) 0.0 10^3/uL (0.0-0.2) 06/16/19 06:45 Seg Neutrophils % 68.1 % (42-78) 06/16/19 06:45 Sodium 137.9 mmol/L (137-145) 06/17/19 07:41 Potassium 4.3 mmol/L (3.6-5.0) 06/17/19 07:41 Chloride 100 mmol/L (98-107) 06/17/19 07:41 Carbon Dioxide 33 mmol/L (22-30) H 06/17/19 07:41 Anion Gap 5 (5-19) 06/17/19 07:41 BUN 7 mg/dL (7-20) 06/17/19 07:41 Creatinine 0.89 mg/dL (0.52-1.25) 06/17/19 07:41 Est GFR ( Amer) > 60 (>60) 06/17/19 07:41 Est GFR (MDRD) Non-Af > 60 (>60) 06/17/19 07:41 Glucose 99 mg/dL (75-110) 06/17/19 07:41 Hemoglobin A1c % 5.4 % (4.7-6.0) 06/17/19 07:41 Calcium 9.3 mg/dL (8.4-10.2) 06/17/19 07:41 Time Trough Drawn 211606/17/19 21:17 Vancomycin Trough 11.6 ug/mL (5.0-20.0) 06/17/19 21:17 Impressions: Foot X-Ray 06/16/19 07:42 IMPRESSION: Soft tissue swelling at the dorsal aspect of the midfoot without an associated osseous abnormality, radiopaque foreign body or subcutaneous emphysema. Plan Plan of Treatment: The patient is discharged home with self-care. He is directed to establish with a local physician for primary care services. He is advised to keep his foot clean and dry; wash daily with gentle soap and water apply Silvadene dressing and cover and dry dressing or clean dry sock. He is advised to complete his course of antibiotic therapy. He is encouraged to return to the emergency department as needed for any concerning symptoms. Time Spent: Less than 30 Minutes Stroke Is this a Stroke Patient?: No Acute Heart Failure - Is this a Heart Failure Patient?: No
== END 2019-06-19 12:32 | disposition home or self-care (01) | DRG 603 ==
LOC: ER 05:53 → EH 10:37 → 4N 14:48
PROVIDERS: ADMIT Internal Medicine; ATTEND Internal Medicine
DX: L03.115 Cellulitis of right lower limb (principal); I10 Essential (primary) hypertension; Z59.0 Homelessness; E11.8 Type 2 diabetes mellitus with unspecified complications; F17.210 Nicotine dependence, cigarettes, uncomplicated
CPT/HCPCS: 36415; 80048; 80202; 83036; 85025; 85027; 87040; 93971; 96365; 96367; 96375; 99285; J0696; J2270; J3370; J7060

== ENCOUNTER 2019-06-27 00:56 | Emergency (ER) | payer SELFPAY ==
[2019-06-27 02:00] LABS: ABSOLUTE BASOPHILS # (AUTO) 0.1 10^3/uL (0.0-0.2); ABSOLUTE EOSINOPHILS # (AUTO) 0.2 10^3/uL (0.0-0.6); ABSOLUTE LYMPHOCYTES (AUTO) 2.7 10^3/uL (0.5-4.7); ABSOLUTE MONOCYTES (AUTO) 0.6 10^3/uL (0.1-1.4); ABSOLUTE NEUT (AUTO) 6.3 10^3/uL (1.7-8.2); BASOPHILS % (AUTO) 1.2 % (0-2); EOSINOPHILS % (AUTO) 1.5 % (0-6); HEMATOCRIT 45.7 % (37.9-51.0); HEMOGLOBIN 14.9 g/dL (13.5-17.0); LYMPHOCYTES % (AUTO) 27.2 % (13-45); MEAN CORPUSCULAR HEMOGLOBIN 30.7 pg (27.0-33.4); MEAN CORPUSCULAR HGB CONC 32.6 g/dL (32.0-36.0); MEAN CORPUSCULAR VOLUME 94 fl (80-97); MONOCYTES % (AUTO) 6.5 % (3-13); RED BLOOD COUNT 4.86 10^6/uL (4.35-5.55); RED CELL DISTRIBUTION WIDTH 13.6 % (11.5-14.0); SEGMENTED NEUTROPHILS % (AUTO) 63.6 % (42-78); TOTAL CELLS COUNTED % (AUTO) 100 %; WHITE BLOOD COUNT 9.9 10^3/uL (4.0-10.5)
[2019-06-27 02:12] LABS: PLATELET COUNT 207 10^3/uL (150-450)
[2019-06-27 04:28] LABS: ALBUMIN 4.5 g/dL (3.5-5.0); ALKALINE PHOSPHATASE 82 U/L (38-126); ANION GAP 12 (5-19); ASPARTATE AMINO TRANSFERASE 33 U/L (17-59); BILIRUBIN,DIRECT 0.1 mg/dL (0.0-0.4); BILIRUBIN,TOTAL 0.8 mg/dL (0.2-1.3); BLOOD UREA NITROGEN 11 mg/dL (7-20); CALCIUM 9.7 mg/dL (8.4-10.2); CARBON DIOXIDE 26 mmol/L (22-30); CHLORIDE 101 mmol/L (98-107); GLUCOSE 101 mg/dL (75-110); POTASSIUM 4.3 mmol/L (3.6-5.0); TOTAL PROTEIN 8.1 g/dL (6.3-8.2)
[2019-06-27] MEDS ORDERED: VANCOMYCIN HCL INJ 1000 MG VIAL IV ONE (04:45)
[2019-06-27] MEDS ORDERED: CEFTRIAXONE 1 GM/D5W RTU 1 GM/50 ML RTUPB IV ONE (04:46)
--- NOTE | 2019-06-27 07:21 | ER Document Report ---
HPI - HPI Time Seen by Provider: 06/27/19 04:18 Pain Level: 3 Notes: 53-year-old male presenting to the emergency department with concern for left foot cellulitis. Patient reports recently discharged from this hospital on oral antibiotics but patient reports he has not had them filled because he cannot afford them. Patient denies any fevers. He does report drinking a 12 pack of beer per day. - CONSTITUTIONAL Constitutional: DENIES: Fever, Chills - REPRODUCTIVE Reproductive: DENIES: : - MUSCULOSKELETAL Musculoskeletal: REPORTS: Extremity pain Past Medical History - General Information source: Patient - Social History Smoking Status: Current Every Day Smoker Chew tobacco use (# tins/day): No Frequency of alcohol use: daily - 12 pack Drug Abuse: None Family History: Reviewed & Not Pertinent, CAD, CVA Patient has suicidal ideation: No Patient has homicidal ideation: No - Past Medical History Cardiac Medical History: Reports: Hx Hypertension Endocrine Medical History: Reports: Hx Diabetes Mellitus Type 2 - borderline Renal/ Medical History: Denies: Hx Peritoneal Dialysis Skin Medical History: Reports Hx Cellulitis, Reports Hx MRSA - Immunizations Immunizations up to date: Yes Hx Diphtheria, Pertussis, Tetanus Vaccination: Yes Hx Pneumococcal Vaccination: 01/28/13 Vertical Provider Document - CONSTITUTIONAL Notes: PHYSICAL EXAMINATION: GENERAL: Well-appearing, well-nourished and in no acute distress. HEAD: Atraumatic, normocephalic. EYES: Pupils equal round extraocular movements intact, conjunctiva are normal. ENT: Nares patent NECK: Normal range of motion LUNGS: No respiratory distress Musculoskeletal: Normal range of motion NEUROLOGICAL: Normal speech, normal gait. PSYCH: Normal mood, normal affect. SKIN: Erythema with exudates noted to dorsal surface of right foot, palpable dorsalis pedis pulse, cap refill less than 3 seconds to toes distally. - INFECTION CONTROL TRAVEL OUTSIDE OF THE [place] IN LAST 30 DAYS: No Course - Re-evaluation Re-evalutation: I did call and attempted to get this patient admitted. I had a lengthy discussion with the hospitalist regarding patient's noncompliance with outpatient therapy. Patient has not had his medications filled so technically he has not failed oral therapy. At this point in time he does not have any leukocytosis and his x-ray is negative for any subcutaneous gas or evidence of osteomyelitis. Patient does not meet criteria for inpatient treatment at this time. I did place a consult for social work to see if there is anything that can be done to help patient afford his antibiotics. Patient will be discharged after social work sees him. - Vital Signs Vital signs: Temp Pulse Resp BP Pulse Ox 98.4 F 84 16 168/74 H 98 06/27/19 06:30 06/27/19 06:30 06/27/19 06:30 06/27/19 06:30 06/27/19 01:09 - Laboratory Result Diagrams: 06/27/19 01:10 06/27/19 03:49 Discharge - Discharge Clinical Impression: Cellulitis of foot Condition: Stable Disposition: HOME, SELF-CARE Additional Instructions: You were seen in the emergency department today for your foot infection. This does not appear to be any worse than when you were here recently. It is very important that you have your medications filled and take your antibiotics as prescribed. At this time your infection does not meet admission criteria to the hospital as you have not had a fever and you do not have any abnormalities with your lab work. Please continue to wash and dry the area twice daily. Follow-up with the [facility], their phone number is on the second page of this discharge packet. Prescriptions: Sulfamethoxazole/Trimethoprim [Bactrim Ds Tablet] 1 tab PO BID #14 tablet Cephalexin [Cephalexin 500 MG Tablet] 1 tab PO BID #14 tablet
--- NOTE | 2019-06-27 08:19 | RADIOLOGY REPORT (SQ) ---
EXAM DESCRIPTION: FOOT RIGHT COMPLETE COMPLETED DATE/TIME: 06/27/2019 5:19 am REASON FOR STUDY: eval for gas or osteomyelitis COMPARISON: 06/16/2019 right foot films NUMBER OF VIEWS: Three views. TECHNIQUE: AP, lateral and oblique radiographic images acquired of the right foot. LIMITATIONS: None. FINDINGS: MINERALIZATION: Normal. BONES: No acute fracture or dislocation. No worrisome bone lesions. JOINTS: Degenerative change 1st metatarsophalangeal joint SOFT TISSUES: Mild diffuse forefoot soft tissue swelling. No radiopaque foreign body or soft tissue gas OTHER: No other significant finding. IMPRESSION: Mild diffuse forefoot soft tissue swelling. No radiopaque foreign body or soft tissue g as. No acute fracture TECHNICAL DOCUMENTATION: JOB ID: [id number] [employer]- All Rights Reserved Reading location - IP/workstation name: [email or web address]
[2019-06-27 09:37] VITALS: BP 158/88
== END 2019-06-27 09:39 | disposition home or self-care (01) ==
LOC: ER 00:56
DX: L03.116 Cellulitis of left lower limb (principal); F17.200 Nicotine dependence, unspecified, uncomplicated; F10.10 Alcohol abuse, uncomplicated; I10 Essential (primary) hypertension; E11.9 Type 2 diabetes mellitus without complications
CPT/HCPCS: 99283; 96365; 96367; 36415; 87040; 85025; 80053; 83605; 73630; J3370; J0696

== ENCOUNTER 2019-07-08 02:01 | Emergency (ER) | payer SELFPAY ==
--- NOTE | 2019-07-08 03:26 | RADIOLOGY REPORT (SQ) ---
CLINICAL HISTORY: BONE TENDERNESS COMPARISON: June 27, 2019. TECHNIQUE: XR FOOT 3 OR MORE VIEWS 07/08/2019 2:48 AM CDT FINDINGS: There is no fracture. There are degenerative changes of the first MTP joint. There are also degenerative changes of the first and fifth IP joints. There is mild diffuse soft tissue swelling. IMPRESSION: No acute osseous findings.
[2019-07-08] MEDS ORDERED: ONDANSETRON 4 MG TAB.RAPDIS PO ONE (04:47)
--- NOTE | 2019-07-08 04:49 | ER Document Report ---
ED Medical Screen (RME) - General Chief Complaint: Skin Problem Stated Complaint: RIGHT FOOT PAIN Time Seen by Provider: 07/08/19 04:40 Notes: 53-year-old male comes by EMS for chief complaint of right foot pain. He has a history of recurrent right foot cellulitis, he states it has been itching and he has been scratching it but now it is starting to weep and become more painful. He denies fever/chills but he states he has a vague nausea. He admits he is homeless. He states he tends to not fill his antibiotics because he cannot afford them, he states he did not feel his most recent antibiotics. He denies history of diabetes. Tetanus reportedly up-to-date. TRAVEL OUTSIDE OF THE [place] IN LAST 30 DAYS: No - Related Data Allergies/Adverse Reactions: Penicillins Allergy (Verified 03/14/19 08:02) Past Medical History - Past Medical History Cardiac Medical History: Reports: Hx Hypertension Endocrine Medical History: Reports: Hx Diabetes Mellitus Type 2 - borderline Renal/ Medical History: Denies: Hx Peritoneal Dialysis Skin Medical History: Reports Hx Cellulitis, Reports Hx MRSA - Immunizations Immunizations up to date: Yes Hx Diphtheria, Pertussis, Tetanus Vaccination: Yes Physical Exam - Vital signs Vitals: Temp Pulse Resp BP Pulse Ox 97.6 F 87 16 141/91 H 96 07/08/19 02:19 07/08/19 02:19 07/08/19 02:19 07/08/19 02:19 07/08/19 02:19 - Extremities General lower extremity: Other - There is erythema, warmth, and a ton of excoriation over the dorsal right foot. Capillary refill and sensation intact, lower extremity otherwise unremarkable. No purulent drainage noted at this time. Course - Re-evaluation Re-evalutation: Patient sleeping but easily aroused, no distress, no fever, initiating work-up. I have greeted and performed a rapid initial assessment of this patient. A comprehensive ED assessment and evaluation of the patient, analysis of test results and completion of the medical decision making process will be conducted by additional ED providers. - Vital Signs Vital signs: Temp Pulse Resp BP Pulse Ox 97.6 F 87 16 141/91 H 96 07/08/19 02:19 07/08/19 02:19 07/08/19 02:19 07/08/19 02:19 07/08/19 02:19
[2019-07-08] MEDS ORDERED: SILVER SULFADIAZINE 1% CREAM 25 GM TP ONE (06:46)
[2019-07-08 07:21] LABS: ABSOLUTE EOSINOPHILS # (AUTO) 0.1 10^3/uL (0.0-0.6); ABSOLUTE LYMPHOCYTES (AUTO) 2.2 10^3/uL (0.5-4.7); ABSOLUTE MONOCYTES (AUTO) 0.9 10^3/uL (0.1-1.4); ABSOLUTE NEUT (AUTO) 4.9 10^3/uL (1.7-8.2); BASOPHILS % (AUTO) 0.5 % (0-2); EOSINOPHILS % (AUTO) 1.8 % (0-6); HEMATOCRIT 40.5 % (37.9-51.0); HEMOGLOBIN 13.6 g/dL (13.5-17.0); LYMPHOCYTES % (AUTO) 26.7 % (13-45); MEAN CORPUSCULAR HEMOGLOBIN 31.8 pg (27.0-33.4); MEAN CORPUSCULAR HGB CONC 33.5 g/dL (32.0-36.0); MEAN CORPUSCULAR VOLUME 95 fl (80-97); MONOCYTES % (AUTO) 10.6 % (3-13); PLATELET COUNT 236 10^3/uL (150-450); RED BLOOD COUNT 4.27 10^6/uL (4.35-5.55); SEGMENTED NEUTROPHILS % (AUTO) 60.4 % (42-78); TOTAL CELLS COUNTED % (AUTO) 100 %; WHITE BLOOD COUNT 8.1 10^3/uL (4.0-10.5)
[2019-07-08 07:41] LABS: ALBUMIN 4.4 g/dL (3.5-5.0); ALKALINE PHOSPHATASE 69 U/L (38-126); ASPARTATE AMINO TRANSFERASE 46 U/L (17-59); BILIRUBIN,DIRECT 0.2 mg/dL (0.0-0.4); BILIRUBIN,TOTAL 0.9 mg/dL (0.2-1.3); BLOOD UREA NITROGEN 14 mg/dL (7-20); CALCIUM 9.3 mg/dL (8.4-10.2); CARBON DIOXIDE 22 mmol/L (22-30); POTASSIUM 4.2 mmol/L (3.6-5.0); TOTAL PROTEIN 7.8 g/dL (6.3-8.2)
[2019-07-08 07:48] LABS: ANION GAP 13 (5-19); CHLORIDE 109 mmol/L (98-107)
[2019-07-08 07:50] LABS: GLUCOSE 39 mg/dL (75-110)
--- NOTE | 2019-07-08 10:14 | RADIOLOGY REPORT (SQ) ---
EXAM DESCRIPTION: CT ABD/PELVIS WITH IV ONLY COMPLETED DATE/TIME: 07/08/2019 9:57 am REASON FOR STUDY: hypoglycemia/eval pancreas COMPARISON: None. TECHNIQUE: CT scan of the abdomen and pelvis performed using helical scanning technique with dynamic intravenous contrast injection. No oral contrast. Images reviewed with lung, soft tissue, and bone windows. Reconstructed coronal and sagittal MPR images reviewed. Delayed images for evaluation of the urinary system also acquired. All images stored on PACS. All CT scanners at this facility use dose modulation, iterative reconstruction, and/or weight based d osing when appropriate to reduce radiation dose to as low as reasonably achievable (ALARA). [facility]: Dose Right [facility]: CareDose [facility]: Dose Right [facility]: Teradose 4D [facility]: Spinal Integration CONTRAST TYPE AND DOSE: contrast/concentration: Isovue 350.00 mg/ml; Total Contrast Delivered: 94.0 ml; Total Saline Delivered: 68.0 ml RENAL FUNCTION: Creatinine 0.96 RADIATION DOSE: CT Rad equipment meets quality standard of care and radiation dose reduction techniq ues were employed. CTDIvol: 6.0 - 8.3 mGy. DLP: 726 mGy-cm.. LIMITATIONS: None. FINDINGS: LOWER CHEST: No significant findings. No nodules or infiltrates. LIVER: Normal size. No masses. No dilated ducts. Hepatic steatosis. SPLEEN: Normal size. No focal lesions. PANCREAS: No masses. No significant calcifications. No adjacent inflammation or peripancreatic fluid collections. Pancreatic duct not dilated. GALLBLADDER: No identified stones by CT criteria. No inflammatory changes to suggest cholecystitis. ADRENAL GLANDS: No significant masses or asymmetry. RIGHT KIDNEY AND URETER: No solid masses. No significant calcifications. No hydronephrosis or hyd roureter. LEFT KIDNEY AND URETER: No solid masses. No significant calcifications. No hydronephrosis or hydr oureter. AORTA AND VESSELS: No aneurysm. No dissection. Renal arteries, SMA, celiac without stenosis. RETROPERITONEUM: No retroperitoneal adenopathy, hemorrhage or masses. BOWEL AND PERITONEAL CAVITY: No masses or inflammatory changes. No free fluid or peritoneal masses. APPENDIX: Normal. PELVIS: No mass. No free fluid. Normal bladder. ABDOMINAL WALL: Asymmetric right inguinal adenopathy, largest measuring 17 mm in short axis. BONES: No acute bony abnormality. No suspicious lytic or blastic osseous lesions. OTHER: No other significant finding. IMPRESSION: 1. Hepatic steatosis. 2. Asymmetric right inguinal adenopathy, etiology uncertain. 3. No other evidence of acute intra-abdominal/pelvic process. TECHNICAL DOCUMENTATION: JOB ID: [id number] Quality ID # [id number]: Final reports with documentation of one or more dose reduction techniques (e.g., Au tomated exposure control, adjustment of the mA and/or kV according to patient size, use of iterative reconstruction technique) 2010 [employer]- All Rights Reserved Reading location - IP/workstation name: [email or web address]
--- NOTE | 2019-07-08 12:01 | ER Document Report ---
ED General - General Chief Complaint: Skin Problem Stated Complaint: RIGHT FOOT PAIN Time Seen by Provider: 07/08/19 04:40 Mode of Arrival: Ambulatory Information source: Patient TRAVEL OUTSIDE OF THE [place] IN LAST 30 DAYS: No - HPI Notes: Patient presents with right foot pain. He states his pain is moderate and constant. It is a burning and itching sensation. It radiates up his right foot. It is worse when touched and better if left alone. He was recently diagnosed with right foot cellulitis and discharged home with antibiotics. He states he is not purchased the antibiotics yet. Patient states that he also drinks 3-4 beers per day. Denies drug use. No recent trauma. Patient denies any fevers. - Related Data Allergies/Adverse Reactions: Penicillins Allergy (Verified 07/08/19 09:32) Past Medical History - General Information source: Patient - Social History Smoking Status: Current Every Day Smoker Frequency of alcohol use: Heavy Drug Abuse: None Family History: Reviewed & Not Pertinent, CAD, CVA Patient has suicidal ideation: No Patient has homicidal ideation: No - Past Medical History Cardiac Medical History: Reports: Hx Hypertension Endocrine Medical History: Reports: Hx Diabetes Mellitus Type 2 - borderline Renal/ Medical History: Denies: Hx Peritoneal Dialysis Skin Medical History: Reports Hx Cellulitis, Reports Hx MRSA - Immunizations Immunizations up to date: Yes Hx Diphtheria, Pertussis, Tetanus Vaccination: Yes Hx Pneumococcal Vaccination: 01/28/13 Review of Systems - Review of Systems Constitutional: denies: Chills, Fever Cardiovascular: denies: Chest pain, Palpitations Respiratory: denies: Cough, Short of breath Gastrointestinal: denies: Diarrhea, Vomiting -: Yes All other systems reviewed and negative Physical Exam - Vital signs Vitals: Temp Pulse Resp BP Pulse Ox 97.6 F 87 16 141/91 H 96 07/08/19 02:19 07/08/19 02:19 07/08/19 02:19 07/08/19 02:19 07/08/19 02:19 Interpretation: Normal - General General appearance: Appears well, Alert - HEENT Head: Normocephalic, Atraumatic Eyes: Normal Pupils: PERRL - Respiratory Respiratory status: No respiratory distress Chest status: Nontender Breath sounds: Normal Chest palpation: Normal - Cardiovascular Rhythm: Regular Heart sounds: Normal auscultation Murmur: No - Abdominal Inspection: Normal Distension: No distension Bowel sounds: Normal Tenderness: Nontender Organomegaly: No organomegaly - Back Back: Normal, Nontender - Extremities General upper extremity: Normal inspection, Nontender, Normal color, Normal ROM, Normal temperature General lower extremity: Other - Left lower extremity exam is unremarkable. Rig ht lower extremity shows a wound covering most of the dorsum of the right foot. It is weeping yellow serosanguineous fluid with some crusting. It seems consistent with an impetigo type lesion. No significant surrounding erythema or induration. It is not significantly tender. He is got a 2+ dorsalis pedis pulse in this foot. Rest of the patient's lower external exam is unremarkable. - Neurological Neuro grossly intact: Yes Cognition: Normal Orientation: AAOx4 Supriya Coma Scale Eye Opening: Spontaneous [place] Coma Scale Verbal: Oriented [place] Coma Scale Motor: Obeys Commands [place] Coma Scale Total: 15 Speech: Normal Motor strength normal: LUE, RUE, LLE, RLE Sensory: Normal - Psychological Associated symptoms: Normal affect, Normal mood - Skin Skin Temperature: Warm Skin Moisture: Dry Skin Color: Normal Course - Re-evaluation Re-evalutation: 07/08/19 11:58 Patient presents with right foot pain that is mild. He has an obvious infection in the foot. He states he cannot afford antibiotics. Therefore I have dressed with Silvadene and will send him home with Silvadene cream that he can dress the foot with. He was recently admitted for this problem however he states that he is homeless and has no shoe to wear on that foot. Therefore I have wrapped it for him I have also asked for social work to consult to see what resources we can help the patient with. I have asked him if he is try to go to the [facility] and he states that he can never get in there. I do not believe the patient would benefit from being admitted as he has normal vitals and unremarkable laboratories. Patient's x-ray shows no evidence of osteomyelitis or foreign body. Patient did have a low blood sugar. I called and discussed this with the bdr at [facility]. Patient had a negative belly CT. No evidence of intra-abdominal tumor. He takes no medications that would cause this. Most likely patient's alcoholism and malnutrition are contributing to this. Patient was educated about the fact that he needs to stop drinking alcohol and increase his nutritional intake. I have sent off a C-peptide for a reference. I have also asked patient to follow-up with the [facility] as soon as possible. - Vital Signs Vital signs: Temp Pulse Resp BP Pulse Ox 97.6 F 87 16 141/91 H 96 07/08/19 02:19 07/08/19 02:19 07/08/19 02:19 07/08/19 02:19 07/08/19 02:19 - Laboratory Result Diagrams: 07/08/19 07:09 07/08/19 07:09 Laboratory results interpreted by me: 07/08/19 07/08/19 07/08/19 07:09 07:09 07:58 RBC 4.27 L Chloride 109 H Glucose 39 L* POC Glucose 43 L 07/08/19 08:30 RBC Chloride Glucose POC Glucose 138 H - Diagnostic Test Radiology reviewed: Image reviewed, Reports reviewed Discharge - Discharge Clinical Impression: Cellulitis of right foot, Hypoglycemia, Homeless, Tobacco dependence, Alcoholism Condition: Stable Disposition: HOME, SELF-CARE Instructions: Cellulitis ([facility]), Chronic Alcoholism ([facility]), Hypoglycemia ([facility]) Additional Instructions: Please call or go to the [facility] as soon as possible to be seen for reevaluation. Please stop drinking alcohol. Your alcohol use is causing your blood sugar to drop to dangerous levels. If you continue to drink alcohol you may end up with permanent disability, coma, or . Please use the Silvadene on your foot 2 times per day.
[2019-07-08] MEDS ORDERED: SILVER SULFADIAZINE 1% CREAM 400 GM TP ONE (12:04)
[2019-07-08 13:03] VITALS: BP 134/70
== END 2019-07-08 15:27 | disposition home or self-care (01) ==
LOC: ER 02:01
DX: L03.115 Cellulitis of right lower limb (principal); T36.96XA Underdosing of unspecified systemic antibiotic, initial encounter; Z91.120 Patient's intentional underdosing of medication regimen due to financial hardship; Z91.14 Patient's other noncompliance with medication regimen; F10.20 Alcohol dependence, uncomplicated; E46 Unspecified protein-calorie malnutrition; E16.2 Hypoglycemia, unspecified; I10 Essential (primary) hypertension; F17.200 Nicotine dependence, unspecified, uncomplicated; Z59.0 Homelessness; Z88.0 Allergy status to penicillin; Z86.14 Personal history of Methicillin resistant Staphylococcus aureus infection
CPT/HCPCS: 36415; 87070; 87205; 82962; 84681; 85025; 80053; 73630; 74177; S0119; 87077; 99284; J3490

== ENCOUNTER 2020-03-14 00:47 | Emergency (ER) | payer SELFPAY ==
[2020-03-14] MEDS ORDERED: OXYCODONE HCL IR 5 MG TABLET PO ONE (05:12)
--- NOTE | 2020-03-14 05:15 | ER Document Report ---
ED Extremity Problem, Lower - General Chief Complaint: Foot Pain Stated Complaint: FOOT PAIN Time Seen by Provider: 03/14/20 04:56 Notes: Patient is a 54-year-old male that comes emergency department for chief complaint of right foot pain. He states the foot feels swollen, he states it is hard to walk on the foot, he states that he works construction, his shoes rub at the skin, and he frequently drops heavy items on his foot. He states he is unsure if he injured the foot or if it is getting infected. He is up-to-date on his tetanus. He denies diabetes, drainage from the foot, fever/chills, nausea/vomiting. He takes no daily medications. He admits to both smoking and frequent alcohol but he denies alcohol withdrawal history. He denies any other complaints. He came by EMS. TRAVEL OUTSIDE OF THE [place] IN LAST 30 DAYS: No - Related Data Allergies/Adverse Reactions: Penicillins Allergy (Verified 07/08/19 09:32) Past Medical History - General Information source: Patient - Social History Smoking Status: Current Every Day Smoker Chew tobacco use (# tins/day): No Frequency of alcohol use: None Drug Abuse: None Lives with: Family Family History: Reviewed & Not Pertinent, CAD, CVA Patient has homicidal ideation: No - Past Medical History Cardiac Medical History: Reports: Hx Hypertension Endocrine Medical History: Reports: Hx Diabetes Mellitus Type 2 - borderline Renal/ Medical History: Denies: Hx Peritoneal Dialysis Skin Medical History: Reports Hx Cellulitis, Reports Hx MRSA - Immunizations Immunizations up to date: Yes Hx Diphtheria, Pertussis, Tetanus Vaccination: Yes Hx Pneumococcal Vaccination: 01/28/13 Review of Systems - Review of Systems Constitutional: No symptoms reported EENT: No symptoms reported Cardiovascular: No symptoms reported Respiratory: No symptoms reported Gastrointestinal: No symptoms reported Genitourinary: No symptoms reported Male Genitourinary: No symptoms reported Musculoskeletal: See HPI Skin: See HPI Hematologic/Lymphatic: No symptoms reported Neurological/Psychological: No symptoms reported Physical Exam - Vital signs Vitals: Temp Pulse Resp BP Pulse Ox 98.7 F 53 L 16 172/95 H 100 03/14/20 01:05 03/14/20 01:05 03/14/20 01:05 03/14/20 01:05 03/14/20 01:05 - Notes Notes: GENERAL: Patient sleeping and easily aroused. Somewhat disheveled in appearance HEAD: Normocephalic, atraumatic. EYES: Pupils equal, round, and reactive to light. Extraocular movements intact. ENT: Oral mucosa moist, tongue midline. Oropharynx unremarkable. Airway patent. NECK: Full range of motion. Supple. Trachea midline. No lymphadenopathy. LUNGS: Clear to auscultation bilaterally, no wheezes, rales, or rhonchi. No resp iratory distress. Non-tender chest wall. HEART: Regular rate and rhythm. No murmur ABDOMEN: Soft, non-tender. Non-distended. EXTREMITIES: Left lower extremity unremarkable. Right foot with irritated dry skin in between the toes, dorsal aspect of the right foot with very superficial abrasions, slight tenderness, recent mild bleeding seems to be present, but no purulent drainage. No induration or fluctuance noted. Very mild warmth and erythema over the dorsal aspect of the foot only, no spread to the toes or ankle. Normal cap refill and sensation, dorsalis pedis present. BACK: no cervical, thoracic, lumbar midline tenderness. No saddle anesthesia, normal distal neurovascular exam. Moves all extremities in full range of motion. NEUROLOGICAL: Alert and oriented x3. Normal speech. Cranial nerves II through XII grossly intact. Strength 5/5 in all extremities. PSYCH: Normal affect, normal mood. SKIN: Warm, dry, normal turgor. No rashes or lesions noted. Course - Re-evaluation Re-evalutation: Patient has what appears to be developing fungal infection, injury with abrasions to the top of the foot with very mild warmth and borderline cellulitis. However there is no fever, no other abnormal vital signs, no leukocytosis, unremarkable chemistry, unremarkable x-ray, no spreading erythema noted. No history of diabetes. Patient has had cellulitis in the past and has been admission on occasion in the past but is evaluation tonight does not show any concerning findings or severe abnormality. I discussed with patient, he will be placed on antifungal, Keflex, he is to elevate this, discussed care, provided with dressings. Patient does state understanding and agreement. - Vital Signs Vital signs: Temp Pulse Resp BP Pulse Ox 98.3 F 73 14 160/88 H 98 03/14/20 07:01 03/14/20 07:01 03/14/20 07:01 03/14/20 07:01 03/14/20 07:01 - Laboratory Result Diagrams: 03/14/20 05:29 03/14/20 05:29 Laboratory results interpreted by me: 03/14/20 03/14/20 05:29 05:29 RBC 4.01 L Hgb 12.9 L Anion Gap 4 L Discharge - Discharge Clinical Impression: Right foot pain, Skin infection Right foot injury Qualifiers: Encounter type: initial encounter Qualified Code(s): S99.921A - Unspecified injury of right foot, initial encounter Condition: Stable Disposition: HOME, SELF-CARE Additional Instructions: Your x-ray and lab work-up did not show any concerning findings. Your exam shows rubbed, irritated skin, what appears to be a fungal infection, and some early skin infection/cellulitis. Recommendation is to use the topical antifungal especially in between the toes, keep the area very clean and dry, elevate your feet whenever possible, and take the antibiotics as prescribed. Follow-up with primary care. Return if you worsen including developing or spreading redness, discolored drainage, developing swelling, fever/chills, or any other concerning symptoms. Prescriptions: Clotrimazole [Athletic Foot Cream] 1 applic TP ASDIR PRN #1 cream..g. PRN Reason: Cephalexin Monohydrate [Keflex 500 mg Capsule] 500 mg PO QID #28 capsule Forms: Return to Work, Elevated Blood Pressure
[2020-03-14 05:55] LABS: ABSOLUTE BASOPHILS # (AUTO) 0.1 10^3/uL (0.0-0.2); ABSOLUTE EOSINOPHILS # (AUTO) 0.2 10^3/uL (0.0-0.6); ABSOLUTE MONOCYTES (AUTO) 0.7 10^3/uL (0.1-1.4); ABSOLUTE NEUT (AUTO) 3.5 10^3/uL (1.7-8.2); BASOPHILS % (AUTO) 0.8 % (0-2); EOSINOPHILS % (AUTO) 3.7 % (0-6); HEMATOCRIT 38.8 % (37.9-51.0); HEMOGLOBIN 12.9 g/dL (13.5-17.0); MEAN CORPUSCULAR HEMOGLOBIN 32.2 pg (27.0-33.4); MEAN CORPUSCULAR HGB CONC 33.2 g/dL (32.0-36.0); MEAN CORPUSCULAR VOLUME 97 fl (80-97); MONOCYTES % (AUTO) 10.1 % (3-13); PLATELET COUNT 204 10^3/uL (150-450); RED BLOOD COUNT 4.01 10^6/uL (4.35-5.55); RED CELL DISTRIBUTION WIDTH 13.8 % (11.5-14.0); SEGMENTED NEUTROPHILS % (AUTO) 54.4 % (42-78); TOTAL CELLS COUNTED % (AUTO) 100 %; WHITE BLOOD COUNT 6.5 10^3/uL (4.0-10.5)
--- NOTE | 2020-03-14 05:59 | RADIOLOGY REPORT (SQ) ---
Right foot three view on 03/14/2020 at 5:34 AM CLINICAL INDICATION: Right foot injury, chronic pain, question fracture or gas COMPARISON: 07/08/2019 FINDINGS: There is no radiopaque foreign body. Small plantar calcaneal spur is noted. There is no air within the soft tissues to suggest infection. There are no acute fractures. Visualized joints are well aligned. IMPRESSION: No acute abnormality.
[2020-03-14 06:15] LABS: BLOOD UREA NITROGEN 14 mg/dL (7-20); CALCIUM 9.2 mg/dL (8.4-10.2); CARBON DIOXIDE 27 mmol/L (22-30); CHLORIDE 107 mmol/L (98-107); GLUCOSE 78 mg/dL (75-110); POTASSIUM 4.1 mmol/L (3.6-5.0)
[2020-03-14 06:26] LABS: ANION GAP 4 (5-19)
[2020-03-14] MEDS ORDERED: FLUCONAZOLE 100 MG TABLET PO ONE (06:39)
[2020-03-14] MEDS ORDERED: CEPHALEXIN 500 MG CAPSULE PO ONE (06:39)
[2020-03-14 07:02] VITALS: BP 160/88
== END 2020-03-14 07:02 | disposition home or self-care (01) ==
LOC: ER 00:47
DX: S99.921A Unspecified injury of right foot, initial encounter (principal); L08.9 Local infection of the skin and subcutaneous tissue, unspecified; M79.671 Pain in right foot; F17.200 Nicotine dependence, unspecified, uncomplicated; X58.XXXA Exposure to other specified factors, initial encounter; I10 Essential (primary) hypertension; E11.9 Type 2 diabetes mellitus without complications; Z86.14 Personal history of Methicillin resistant Staphylococcus aureus infection
CPT/HCPCS: 36415; 80048; 85025; 99284